=== PATIENT | female | born 1945 | race Caucasian/White ===

== ENCOUNTER 2016-06-04 19:30 | Emergency (ER) | payer MEDICARE, MEDICAID ==
[~2016-06-04 19:30] MED LIST: Ondansetron 4 MG Tab.DIS PO ONE
[2016-06-04] MEDS ORDERED: Ondansetron 4 MG/2 ML SDV ONE (19:41)
[2016-06-04] MEDS ORDERED: Sodium Chloride 0.9% 1,000 ML IV ONE (19:44)
[2016-06-04] MEDS ORDERED: Ondansetron 4 MG/2 ML SDV IVPUSH STA ×2 (19:45→20:36)
[2016-06-04 19:55] VITALS: BP 154/67
--- NOTE | 2016-06-04 20:14 | EDM.PDOC ---
ED HPI GI/ABDOMINAL - General Chief Complaint: Gastrointestinal Problem Stated Complaint: low potassium Time Seen by Provider: 06/04/16 19:58 Source of Information: Reports: Patient History Limitations: Reports: No limitations - History of Present Illness INITIAL COMMENTS - FREE TEXT/NARRATIVE: This patient is a 71 year old female from a alf with staff at bedside. The staff reports the patient since Saturday has had on and off again vomiting and decrease in appetite. She reports the patient was seen today by PCP, told she had a low potassium. She went back to alf, ate bananas and vomited. The patient presents to the ER for vomiting. The patient denies cloud, dizziness, d , f, cough, congestion, drainage, urinary changes, diarrhea, abd pain. Patient is alert. She is dry heaving when I assess the patient. Symptom Onset Date: 05/25/16 Severity: mild Associated Symptoms (-Female): Reports: loss of appetite, nausea/vomiting. Denies: chest pain, back pain, groin pain, shoulder pain, constipation, diarrhea , bloody stools, fever/chills, malaise - Related Data Allergies/ADRs: Allergies Allergy/AdvReac Type Severity Reaction Status Date / Time amoxicillin Allergy Cannot Verified 05/31/16 14:35 Remember cephalexin Allergy Cannot Verified 05/31/16 14:35 Remember codeine Allergy Cannot Verified 05/31/16 14:35 Remember Sulfa (Sulfonamide Allergy Cannot Verified 05/31/16 14:35 Antibiotics) Remember Home Meds: Home Meds Acetaminophen [Tylenol] 650 mg PO TID 05/31/16 [History] Ascorbic Acid [Vitamin C] 1,000 mg PO DAILY 05/31/16 [History] Cholecalciferol (Vitamin D3) [Vitamin D] 5,000 units PO DAILY 05/31/16 [History] Docusate Sodium [Colace] 100 mg PO BID 05/31/16 [History] Ezetimibe [Zetia] 10 mg PO DAILY 05/31/16 [History] Famotidine [Pepcid] 20 mg PO BID 05/31/16 [History] Ferrous Sulfate 325 mg PO DAILY 05/31/16 [History] Magnesium 250 mg PO DAILY 05/31/16 [History] Multivitamin [Multivitamins] 1 ea PO DAILY 05/31/16 [History] Omeprazole [Omeprazole] 20 mg PO DAILY 05/31/16 [History] Polyethylene Glycol 3350 [MiraLAX] 17 gm PO DAILY 05/31/16 [History] Solifenacin Succinate [Vesicare] 10 mg PO DAILY 05/31/16 [History] fentaNYL [Duragesic] 25 mcg TRDERM ASDIRECTED 05/31/16 [History] traMADol [Ultram] 50 mg PO Q8HR PRN 05/31/16 [History] ED ROS GENERAL - Review of Systems Review Of Systems: See Below Constitutional: Reports: decreased appetite HEENT: Reports: No symptoms Respiratory: Reports: no symptoms Cardiovascular: Reports: No symptoms Endocrine: Reports: no symptoms GI/Abdominal: Reports: Nausea, Vomiting. Denies: Abdominal pain, Diarrhea : Reports: no symptoms Musculoskeletal: Reports: no symptoms Skin: Reports: no symptoms Neurological: Reports: no symptoms Psychiatric: Reports: No symptoms Hematologic/Lymphatic: Reports: no symptoms Immunologic: Reports: no symptoms ED EXAM, GI/ABD - Physical Exam Exam: See Below Exam Limited By: No limitations General Appearance: alert, WD/WN, no apparent distress Eyes: bilateral: normal appearance Ears: normal external exam, normal canal, hearing grossly normal, normal TMs, other (right hearing aid removed for exam, replaced in ear by patient. ) Nose: normal inspection, normal mucosa, no blood Throat/Mouth: Normal inspection, Normal lips, Normal teeth, Normal gums, Normal oropharynx, Normal voice, No airway compromise Head: atraumatic, normocephalic Neck: normal inspection, supple, non-tender, full range of motion Respiratory/Chest: no respiratory distress, lungs clear, normal breath sounds, no accessory muscle use Cardiovascular: normal peripheral pulses, regular rate, rhythm, no edema, no gallop, no JVD, no murmur, no rub GI/Abdominal: normal bowel sounds, soft, non tender, no organomegaly, no distention, no abnormal bruit, no mass Back Exam: normal inspection, full range of motion. No: CVA tenderness (L), CVA tenderness (R) Extremities: normal inspection, normal range of motion, non-tender, no pedal edema, normal capillary refill Neurological: alert Psychiatric: normal affect, normal mood Skin Exam: Warm, Dry, Intact, Normal color, No rash Lymphatic: no adenopathy Course - Vital Signs Last Recorded V/S: Last Vital Signs Temp 97.9 F 06/04/16 19:47 Pulse 97 06/04/16 19:47 Resp 20 06/04/16 19:47 BP 154/67 H 06/04/16 19:47 Pulse Ox 96 06/04/16 19:47 - Orders/Labs/Meds Orders: Active Orders 24 hr Category Date Time Status Ondansetron [Take Home: Ondansetron ODT 4 MG, 2 Tab Med 06/04/16 20:36 Once Pack] 3 packet PO ONETIME ONE Ondansetron [Zofran] Med 06/04/16 20:36 Stat 4 mg IVPUSH NOW STA Sodium Chloride 0.9% [Normal Saline] 1,000 ml Med 06/04/16 19:44 Active IV .BOLUS Medication Orders Sodium Chloride (Normal Saline) 1,000 mls @ 1,000 mls/hr IV .BOLUS ONE Stop: 06/04/16 20:43 Last Admin: 06/04/16 20:02 Dose: 1,000 mls/hr Meds: Medications Generic Name Dose Route Start Last Admin Trade Name Freq PRN Reason Stop Dose Admin Sodium Chloride 1,000 mls @ 1,000 mls/hr 06/04/16 19:44 06/04/16 20:02 Normal Saline IV 06/04/16 20:43 1,000 mls/hr .BOLUS ONE Administration Discontinued Medications Generic Name Dose Route Start Last Admin Trade Name Freq PRN Reason Stop Dose Admin Ondansetron HCl 4 mg 06/04/16 19:45 06/04/16 20:00 Zofran IVPUSH 06/04/16 19:46 4 mg NOW STA Administration Ondansetron HCl Confirm 06/04/16 19:41 06/04/16 20:00 Zofran Administered 06/04/16 19:42 Not Given Dose 4 mg .ROUTE .STK-MED ONE - Re-Assessments/Exams Free Text/Narrative Re-Assessment/Exam: 06/04/16 20:31 Patient was able to hold down liquids with a PO challenge. Will discharge. Departure - Departure Time of Disposition: 20:32 Disposition: Home, Self-Care 01 Condition: good Clinical Impression: Vomiting, Hypokalemia Instructions: Nausea and Vomiting, Adult, [id number] Forms: ED Department Discharge Additional Instructions: Followup with your primary care provider Return to the ER for worsening of condition or any emergent concerns Increase fluids Zofran 4mg under the tongue every 4 hours as needed for vomiting #6 no refill - My Orders Last 24 Hours: My Active Orders 06/04/16 19:44 Sodium Chloride 0.9% [Normal Saline] 1,000 ml IV .BOLUS 06/04/16 20:36 Ondansetron [Take Home: Ondansetron ODT 4 MG, 2 Tab Pack] 3 packet PO ONETIME ONE Ondansetron [Zofran] 4 mg IVPUSH NOW STA - Assessment/Plan Last 24 Hours: My Active Orders 06/04/16 19:44 Sodium Chloride 0.9% [Normal Saline] 1,000 ml IV .BOLUS 06/04/16 20:36 Ondansetron [Take Home: Ondansetron ODT 4 MG, 2 Tab Pack] 3 packet PO ONETIME ONE Ondansetron [Zofran] 4 mg IVPUSH NOW STA Plan: PLEASE SEE RN NOTE FOR PFSH.
[2016-06-04] MEDS ORDERED: Take Home: Ondansetron 4 MG Tab.DIS, 2 Tab Pack PO ONE (20:36)
== END 2016-06-04 21:47 | disposition home or self-care (01) ==
LOC: CC.ED 19:30
DX: E87.6 Hypokalemia (principal); R11.10 Vomiting, unspecified; Z88.1 Allergy status to other antibiotic agents; Z88.5 Allergy status to narcotic agent; Z88.2 Allergy status to sulfonamides; Z79.899 Other long term (current) drug therapy; R10.9 Unspecified abdominal pain
CPT/HCPCS: 36415; 80053; 81001; 82150; 85025; 86140; 87430; 87804; 96361; 96374; 96376; 99283; A9270; J2405; J7030; 96365; 96375

== ENCOUNTER 2017-06-02 10:27 | Emergency (ER) | payer MEDICARE, MEDICAID ==
[2017-06-02 10:33] VITALS: BP 127/75
--- NOTE | 2017-06-02 10:51 | EDM.PDOC ---
ED HPI GENERAL MEDICAL PROBLEM - General Chief Complaint: ENT Problem Stated Complaint: sore throat Time Seen by Provider: 06/02/17 10:34 Source of Information: Reports: Patient, RN, Other (Garageman) - History of Present Illness INITIAL COMMENTS - FREE TEXT/NARRATIVE: This patient is a 72 patient with mental delay. Patient is a [facility] patient. Garageman reported that the patent on Saturday has had some sinus congestion, cough and drainage. They report the patient cough, congestion, drainage is improving. However, they report yesterday the patient had fever and complaining of sore throat. They report today the patient has swelling of lymphnodes of the neck. Caregiver says she has been sleeping more than usual. They and patient deny cloud, dizziness, n, v, d, neck stiffness, cp, soa, abd pain, urinary/bowel changes, rashes. Patient is conversing in full and complete sentences without difficulty. Patent airway is patent and intact. Stable. Onset Date: 05/29/17 Duration: Getting Worse Severity: Mild Improves with: Reports: None Worsens with: Reports: None Associated Symptoms: Reports: Fever/Chills. Denies: Confusion, Chest Pain, Cough, cough w sputum, Diaphoresis, Headaches, Loss of Appetite, Malaise, Nausea /Vomiting, Rash, Seizure, Shortness of Breath, Syncope, Weakness - Related Data Allergies Allergy/AdvReac Type Severity Reaction Status Date / Time amoxicillin Allergy Cannot Verified 06/02/17 10:33 Remember cephalexin Allergy Cannot Verified 06/02/17 10:33 Remember codeine Allergy Cannot Verified 06/02/17 10:33 Remember Sulfa (Sulfonamide Allergy Cannot Verified 06/02/17 10:33 Antibiotics) Remember Home Meds: Home Meds Acetaminophen [Tylenol] 650 mg PO TID 05/31/16 [History] Ascorbic Acid [Vitamin C] 1,000 mg PO DAILY 05/31/16 [History] Cholecalciferol (Vitamin D3) [Vitamin D] 5,000 units PO DAILY 05/31/16 [History] Docusate Sodium [Colace] 100 mg PO BID 05/31/16 [History] Ezetimibe [Zetia] 10 mg PO DAILY 05/31/16 [History] Famotidine [Pepcid] 20 mg PO BID 05/31/16 [History] Ferrous Sulfate 325 mg PO DAILY 05/31/16 [History] Magnesium 250 mg PO DAILY 05/31/16 [History] Multivitamin [Multivitamins] 1 ea PO DAILY 05/31/16 [History] Omeprazole [Omeprazole] 20 mg PO DAILY 05/31/16 [History] Polyethylene Glycol 3350 [MiraLAX] 17 gm PO DAILY 05/31/16 [History] Solifenacin Succinate [Vesicare] 10 mg PO DAILY 05/31/16 [History] Aspirin 325 mg PO DAILY 06/02/17 [History] Azithromycin [IJD: Azithromycin] 250 mg PO DAILY 06/02/17 [History] Dicyclomine [Bentyl] 20 mg PO QID PRN 06/02/17 [History] Nystatin [Nyamyc] 1 applic TOP BID PRN 06/02/17 [History] Past Medical History Cardiovascular History: Reports: Heart Murmur, High Cholesterol Respiratory History: Reports: Other (See Below) Other Respiratory History: EMPHYEMA Gastrointestinal History: Reports: Chronic Constipation, Gastritis Genitourinary History: Reports: Urinary Incontinence Musculoskeletal History: Reports: Osteoarthritis Psychiatric History: Reports: Anxiety, Depression, Other (See Below) Other Psychiatric History: MILD INTELLECTUAL DISABILITIES - Past Surgical History HEENT Surgical History: Reports: Naso-Sinus Surgery Musculoskeletal Surgical History: Reports: Hip Replacement Social & Family History - Family History Family Medical History: Noncontributory - Tobacco Use Smoking Status *Q: Never Smoker - Recreational Drug Use Recreational Drug Use: No ED ROS ENT - Review of Systems Review Of Systems: See Below Constitutional: Reports: Fever HEENT: Reports: Rhinitis, Sinus Problem, Throat Pain Respiratory: Reports: Cough. Denies: Shortness of Breath, Wheezing, Pleuritic Chest Pain, Sputum, Hemoptysis Cardiovascular: Reports: No Symptoms Endocrine: Reports: No Symptoms GI/Abdominal: Reports: No Symptoms : Reports: No Symptoms Musculoskeletal: Reports: No Symptoms Skin: Reports: No Symptoms Neurological: Reports: No Symptoms Psychiatric: Reports: No Symptoms Hematologic/Lymphatic: Reports: No Symptoms Immunologic: Reports: No Symptoms ED EXAM, ENT - Physical Exam Exam: See Below Exam Limited By: No Limitations General Appearance: Alert, WD/WN, No Apparent Distress Eye Exam: Bilateral Eye: Normal Inspection, PERRL Ears: Normal External Exam, Normal Canal, Hearing Grossly Normal, Normal TMs Nose: Normal Inspection, Normal Mucousa, No Blood Mouth/Throat: Normal Inspection, Normal Gums, Normal Lips, Normal Teeth, Pharyngeal Erythema. No: Bleeding, Dental Abcess, Dental Pain, Dental Tenderness, Dental Trauma, Drooling, Dry Mucous Membrane, Gum Swelling, Hoarse Voice, Lip Swelling, Lip Ulcers, Muffled Voice, Perioral Cyanosis, Peritonsillar Mass, Throat Swelling, Tongue Swelling, Tonsillar Erythema, Tonsillar Exudates, Tonsillar Swelling, Trismus, Uvular Deviation, Uvular Edema Head: Atraumatic, Normocephalic Neck: Normal Inspection, Supple, Non-Tender, Full Range of Motion Respiratory/Chest: No Respiratory Distress, Lungs Clear, Normal Breath Sounds, No Accessory Muscle Use Cardiovascular: Normal Peripheral Pulses, Regular Rate, Rhythm, No Edema, No Gallop, No JVD, No Murmur, No Rub GI/Abdominal: Soft, Non-Tender Back: Normal Inspection, Full Range of Motion Extremities: Normal Inspection, Normal Range of Motion, Non-Tender, No Pedal Edema, Normal Capillary Refill Neurological: Alert, Oriented Psychiatric: Normal Affect, Normal Mood Skin: Warm, Dry, Intact, Normal Color, No Rash Lymphatic: Adenopathy (mild cervical anterior.) Course - Vital Signs Last Recorded V/S: Last Vital Signs Temp 97.7 F 06/02/17 10:27 Pulse 83 06/02/17 10:27 Resp 18 06/02/17 10:27 BP 127/75 06/02/17 10:27 Pulse Ox 92 L 06/02/17 10:27 - Orders/Labs/Meds Orders: Active Orders 24 hr Category Date Time Status Chest 2V [CR] Stat Exams 06/02/17 10:59 Taken Labs: Laboratory Tests 06/02/17 06/02/17 06/02/17 Range/Units 11:01 11:01 12:13 WBC 7.5 (5.0-10.0) 10^3/uL RBC 3.98 L (4.00-5.50) 10^6/uL Hgb 12.5 (12.0-16.0) g/dL Hct 37.5 (37.0-47.0) % MCV 94.2 H (82.0-94.0) fL MCH 31.4 (27.0-32.0) pg MCHC 33.3 (33.0-38.0) g/dL RDW Coeff of Patricia 12.8 (11.0-15.0) % Plt Count 207 (150-400) 10^3/uL Neut % (Auto) 80.8 (35-85) % Lymph % (Auto) 8.6 L (10-55) % [place] % (Auto) 10.5 (0-16) % Eos % (Auto) 0 (0-5) % Baso % (Auto) 0.1 (0-3) % Neut # (Auto) 6.09 (1.80-7.00) 10^3/uL Lymph # (Auto) 0.65 L (1.00-4.80) 10^3/uL [place] # (Auto) 0.79 (0.00-0.80) 10^3/uL Eos # (Auto) 0.00 (0.00-0.45) 10^3/uL Baso # (Auto) 0.01 10^3/uL Sodium 132 L (136-145) mEq/L Potassium 5.0 D (3.5-5.0) mEq/L Chloride 96 L (98-106) mEq/L Carbon Dioxide 29 (21-32) mmol/L BUN 18 (7-18) mg/dL Creatinine 0.8 (0.6-1.0) mg/dL Est Cr Clr Drug Dosing 46.55 mL/min Estimated GFR (MDRD) > 60 (>=60) mL/min Glucose 127 H D (75-99) mg/dL Calcium 8.9 (8.4-10.1) mg/dL Total Bilirubin 0.4 (0.0-1.0) mg/dL AST 19 (15-37) U/L ALT 20 (12-78) U/L Alkaline Phosphatase 88 (46-116) U/L Total Protein 7.5 (6.4-8.2) g/dL Albumin 3.1 L (3.4-5.0) g/dL Urine Color Yellow (YELLOW) Urine Appearance Clear (CLEAR) Urine pH 7.0 (4.5-8.0) Ur Specific [place] 1.015 (1.003-1.020) Urine Protein Trace H (NEGATIVE) mg/dL Urine Glucose (UA) 100 H (NEGATIVE) mg/dL Urine Ketones Negative (NEGATIVE) mg/dL Urine Occult Blood Negative (NEGATIVE) Urine Nitrite Negative (NEGATIVE) Urine Bilirubin Negative (NEGATIVE) Urine Urobilinogen 0.2 (0.2-1.0) EU/dL Ur Leukocyte Esterase Negative (NEGATIVE) Urine RBC Not seen (0-5) /HPF Urine WBC Not seen (0-5) /HPF Meds: Medications Discontinued Medications Generic Name Dose Route Start Last Admin Trade Name Freq PRN Reason Stop Dose Admin Clindamycin HCl 300 mg 06/02/17 12:33 Cleocin PO 06/02/17 12:34 ONETIME ONE - Re-Assessments/Exams Free Text/Narrative Re-Assessment/Exam: 06/02/17 10:57 Patient pulse oxygen saturation is 93%. This is patient baseine per trust officer. With complaint of fever, cough, and oxygen 93%, will do CXR and labs. 06/02/17 11:46 Patient does have mildly low Chloride and Sodium. Garageman reports she has been eating and drinking without difficulty. Otherwise labs unremarkable. Departure - Departure Time of Disposition: 12:34 Disposition: Home, Self-Care 01 Condition: Good Clinical Impression: Viral pharyngitis Upper respiratory infection Qualifiers: URI type: unspecified URI Qualified Code(s): J06.9 - Acute upper respiratory infection, unspecified - Discharge Information Instructions: Pharyngitis, Upper Respiratory Infection, Adult, [id number] Forms: ED Department Discharge Additional Instructions: Followup with primary care provider this week Return to the ER for worsening of condition or any emergent concerns Stop Zithromax Increase fluids Tylenol or Motrin for fever Clindamycin 300mg 1 pill every 8 hours for 10 days #30 no refill - My Orders Last 24 Hours: My Active Orders 06/02/17 10:59 Chest 2V [CR] Stat - Assessment/Plan Last 24 Hours: My Active Orders 06/02/17 10:59 Chest 2V [CR] Stat
[2017-06-02 11:36] LABS: CHLORIDE,CL 96 mEq/L (98-106); SODIUM,NA 132 mEq/L (136-145)
[2017-06-02] MEDS ORDERED: Clindamycin HCl 150 MG Cap PO ONE (12:33)
== END 2017-06-02 15:00 | disposition home or self-care (01) ==
LOC: CC.ED 10:27
DX: J02.9 Acute pharyngitis, unspecified (principal); E78.00 Pure hypercholesterolemia, unspecified; Z88.1 Allergy status to other antibiotic agents; Z88.5 Allergy status to narcotic agent; Z88.2 Allergy status to sulfonamides; Z79.899 Other long term (current) drug therapy; Z79.82 Long term (current) use of aspirin
CPT/HCPCS: 36415; 71046; 80053; 81001; 85025; 87430; 99283; A9270-GY

== ENCOUNTER → 2018-11-14 | Day surgery (SDC) | payer MEDICARE, MEDICAID ==
[~2018-11-14] MED LIST changes: +Lactated Ringers 1,000 ML IV SCH; -Ondansetron 4 MG Tab.DIS PO ONE; +Propofol 200 MG/20 ML SDV IV ONE
[2018-11-14 09:57] VITALS: BP 118/62; PULSE 72
--- NOTE | 2018-11-14 11:12 | OR ---
DATE OF OPERATION: 11/14/2018 PREOPERATIVE DIAGNOSIS: HISTORY OF BLAIR'S ESOPHAGUS. POSTOPERATIVE DIAGNOSIS: HISTORY OF BLAIR'S ESOPHAGUS. SURGEON: Carter Tenorio MD PROCEDURE: EGD WITH BIOPSIES X3, LUCILA, POLYP REMOVAL X1. ANESTHESIA: MAC. COMPLICATIONS: None. SPECIMEN: 1. Fundal polyp. 2. Antral LUCILA. 3. Distal esophageal biopsies x3. FINDINGS: 1. Full-length EGD. 2. Fundal adenomatous polyp. 3. Hiatal hernia with gastroesophageal reflux disease. 4. Short-segment Blair's, appears unchanged and benign. RECOMMENDATIONS: Ongoing appropriate treatment with PPI. INDICATIONS: The patient has a prior EGD about 8 years ago. She had a short- segment Blair's at that time and she was sent by [facility] for surveillance. The patient is otherwise asymptomatic. DESCRIPTION OF PROCEDURE: The patient was prepped and draped, placed in the left lateral decubitus position. A lubricated Olympus gastroscope was inserted over a bit, advanced to cricopharyngeus area, and easily intubated in the esophagus. The esophageal lining was benign. Hiatal hernia is present with some spontaneous reflux. The Z-line was crisp around 35 cm. There are short- segment Blair's changes which appear unchanged from prior. This was not circumferential. I did 3 biopsies of all areas. The scope was advanced into the stomach through the pylorus into the second portion of the duodenum. This and the duodenal bulb were unremarkable. The scope was brought back into the stomach, retroflexed. The upper fundus and cardia were benign. Hernia was easily visualized from below. Upon straightening, the patient had 2 or 3 small fundal polyps in the distal fundus. We removed the larger of the 3 with forceps. CLOtest was obtained. The antrum was otherwise benign. Air was suctioned, scope removed without complication. TEE/CASSIE /[id number]
== END ==
LOC: CC.SDS 07:55
PROVIDERS: ATTEND Family Medicine
DX: K22.70 Barrett's esophagus without dysplasia (principal); K31.7 Polyp of stomach and duodenum; K21.9 Gastro-esophageal reflux disease without esophagitis; K44.9 Diaphragmatic hernia without obstruction or gangrene; E78.5 Hyperlipidemia, unspecified; E55.9 Vitamin D deficiency, unspecified; F41.9 Anxiety disorder, unspecified; F17.210 Nicotine dependence, cigarettes, uncomplicated; R62.50 Unspecified lack of expected normal physiological development in childhood; M19.90 Unspecified osteoarthritis, unspecified site; M85.80 Other specified disorders of bone density and structure, unspecified site; Z88.0 Allergy status to penicillin; Z88.5 Allergy status to narcotic agent; Z88.2 Allergy status to sulfonamides; Z88.1 Allergy status to other antibiotic agents; Z79.82 Long term (current) use of aspirin; Z79.899 Other long term (current) drug therapy
CPT/HCPCS: 00731; 43239; 81001; 87081; 88305; J2704; J7120; 87086

== ENCOUNTER 2020-02-20 21:36 | Emergency (ER) | payer MEDICARE, MEDICAID ==
[~2020-02-20 21:36] MED LIST changes: -Lactated Ringers 1,000 ML IV SCH; +Ondansetron 4 MG Tab.DIS ONE; -Propofol 200 MG/20 ML SDV IV ONE
[2020-02-20] MEDS ORDERED: Albuterol/Ipratropium 3.0-0.5 MG/3 ML Neb Soln NEB ONE (21:38)
[2020-02-20] MEDS ORDERED: Ondansetron 4 MG Tab.DIS PO ONE (21:38)
[2020-02-20] MEDS ORDERED: Acetaminophen 500 MG Tab PO ONE (22:04)
--- NOTE | 2020-02-20 22:04 | EDM.PDOC ---
ED HPI GENERAL MEDICAL PROBLEM - General Chief Complaint: General Stated Complaint: covid +, emesis Time Seen by Provider: 02/20/20 21:37 Source of Information: Reports: EMS, RN, Other ([facility] to RN. ) History Limitations: Reports: No Limitations - History of Present Illness INITIAL COMMENTS - FREE TEXT/NARRATIVE: This patient is a 74 year old female that presents via EMS from [facility]. EMS and RN have reported to me that the patient was tested for COVID on Feb 10 and tested positive. The patient since Saturday has had general weakness, shortness of breath, and cough. They report the patient was placed on 3L NC on Saturday and has been in the 90s oxygen saturation. Per RN and EMS report from [facility] staff did not seem certain of oxygen levels during the week. EMS reported patient ambulated to the stretcher without difficulty at facility. It is reported that this morning the patient was short of breath and generally weak, they "almost" called 911, but did not. It is reported that this afternoon the patient was coughing, vomited x2, coughed some more and has been coughing since. They report the patient has been in the 80s on 4L NC today. Maura espinosa arrives via EMS, on 5L NC once I enter exam room. Patient does not appear distressed. She is currently at 89%. She is conversing in full and complete sentences without any difficulty. Onset Date: 02/11/20 Severity: Moderate Improves with: Reports: None Worsens with: Reports: None Associated Symptoms: Reports: Cough, Fever/Chills, Shortness of Breath, Weakness (generally). Denies: Confusion, Chest Pain, cough w sputum, Diaphoresis, Headaches, Loss of Appetite, Malaise, Nausea/Vomiting, Rash, Seizure, Syncope Treatments ADMINISTRATIVE ASSISTANT FRONT DESK: Reports: See EMS Report, Other (see below) (oxygen) - Related Data Allergies Allergy/AdvReac Type Severity Reaction Status Date / Time amoxicillin Allergy Cannot Verified 09/24/19 10:04 Remember cephalexin Allergy Cannot Verified 09/24/19 10:04 Remember codeine Allergy Cannot Verified 09/24/19 10:04 Remember Sulfa (Sulfonamide Allergy Cannot Verified 09/24/19 10:04 Antibiotics) Remember Home Meds: Home Meds Acetaminophen [Tylenol] 500 mg PO TID 05/31/16 [History] Ascorbic Acid [Vitamin C] 1,000 mg PO DAILY 05/31/16 [History] Cholecalciferol (Vitamin D3) [Vitamin D] 2,000 units PO DAILY 05/31/16 [History] Docusate Sodium [Colace] 100 mg PO BID 05/31/16 [History] Ezetimibe [Zetia] 10 mg PO DAILY 05/31/16 [History] Famotidine [Pepcid] 20 mg PO BID 05/31/16 [History] Ferrous Sulfate 325 mg PO BID 05/31/16 [History] Magnesium 250 mg PO DAILY 05/31/16 [History] Multivitamin [Multivitamins] 1 ea PO DAILY 05/31/16 [History] Polyethylene Glycol 3350 [MiraLAX] 17 gm PO DAILY 05/31/16 [History] Solifenacin Succinate [Vesicare] 10 mg PO DAILY 05/31/16 [History] Aspirin 325 mg PO DAILY 06/02/17 [History] Dicyclomine [Bentyl] 20 mg PO QID PRN 06/02/17 [History] Nystatin [Nyamyc] 1 applic TOP BID PRN 06/02/17 [History] Carbamide Peroxide [Ear Wax Removal] 2 drop EARBOTH TU 11/13/18 [History] Clindamycin HCl 600 mg PO ASDIRECTED 11/13/18 [History] Lanolin/Min Oil/NaCl/Pet,Wh [Lubriderm Daily Moisture Lotion] 1 applic TOP BID 11/14/18 [History] Past Medical History Cardiovascular History: Reports: Heart Murmur, High Cholesterol Respiratory History: Reports: Other (See Below) Other Respiratory History: EMPHYEMA Gastrointestinal History: Reports: Chronic Constipation, Gastritis Genitourinary History: Reports: Urinary Incontinence Musculoskeletal History: Reports: Osteoarthritis Psychiatric History: Reports: Anxiety, Depression, Other (See Below) Other Psychiatric History: MILD INTELLECTUAL DISABILITIES - Past Surgical History HEENT Surgical History: Reports: Naso-Sinus Surgery Musculoskeletal Surgical History: Reports: Hip Replacement Social & Family History - Family History Family Medical History: No Pertinent Family History - Caffeine Use Caffeine Use: Reports: None ED ROS GENERAL - Review of Systems Review Of Systems: See Below Constitutional: Reports: Fever, Weakness, Fatigue HEENT: Reports: No Symptoms Respiratory: Reports: Shortness of Breath, Cough. Denies: Sputum Cardiovascular: Reports: No Symptoms Endocrine: Reports: No Symptoms GI/Abdominal: Reports: Nausea, Vomiting. Denies: Abdominal Pain, Diarrhea : Reports: No Symptoms Musculoskeletal: Reports: No Symptoms Skin: Reports: No Symptoms Neurological: Reports: No Symptoms Psychiatric: Reports: No Symptoms Hematologic/Lymphatic: Reports: No Symptoms Immunologic: Reports: No Symptoms ED EXAM, GENERAL - Physical Exam Exam: See Below Exam Limited By: No Limitations General Appearance: Alert, WD/WN, No Apparent Distress Eye Exam: Bilateral Eye: Normal Inspection, PERRL Ears: Normal External Exam, Normal Canal, Hearing Grossly Normal, Normal TMs Ear Exam: Left Ear: Auricle Normal, Canal Normal, TM normal Nose: Normal Inspection, Normal Mucosa, No Blood Throat/Mouth: Normal Inspection, Normal Lips, Normal Teeth, Normal Gums, Normal Oropharynx, Normal Voice, No Airway Compromise Head: Atraumatic, Normocephalic Neck: Normal Inspection, Supple, Non-Tender, Full Range of Motion Respiratory/Chest: No Respiratory Distress, No Accessory Muscle Use, Decreased Breath Sounds (mildly throughout), Rhonchi (mildly throughout) Cardiovascular: Normal Peripheral Pulses, Regular Rate, Rhythm, No Edema, No Gallop, No JVD, No Murmur, No Rub Peripheral Pulses: 2+: Radial (L), Radial (R), Posterior Tibial (L), Posterior Tibial (R) GI/Abdominal: Soft, Non-Tender Back Exam: Normal Inspection, Full Range of Motion Extremities: Normal Inspection, Normal Range of Motion, Non-Tender, No Pedal Edema, Normal Capillary Refill Neurological: Alert, Other (Oriented to self: Forth Piter patient. Baseline unchanged. ) Psychiatric: Normal Affect, Normal Mood Skin Exam: Warm, Dry, Intact, Normal Color, No Rash Lymphatic: No Adenopathy #1 Interpretation EKG Date: 02/21/20 Time: 23:54 Rhythm: NSR Rate (Beats/Min): 92 QRS: Normal ST-T: Normal Course - Vital Signs Last Recorded V/S: Last Vital Signs Temp 100.4 F 02/21/20 00:10 Pulse 94 02/21/20 00:10 Resp 20 02/21/20 00:10 BP 120/68 02/21/20 00:10 Pulse Ox 90 L 02/21/20 00:10 - Orders/Labs/Meds Orders: Active Orders 24 hr Category Date Time Status RT Aerosol Therapy [RC] ASDIRECTED Care 02/20/20 21:39 Active RT Incentive Spirometry [RC] ASDIRECTED Care 02/21/20 00:28 Active RT Post Treatment Assessment [RC] Click to Edit Care 02/21/20 00:29 Active RT Pre-Treatment Assessment [RC] Click to Edit Care 02/21/20 00:29 Active Ang Chest [CT] Stat Exams 02/20/20 22:53 Taken Chest 1V Frontal [CR] Stat Exams 02/20/20 21:47 Taken CULTURE BLOOD [BC] Stat Lab 02/20/20 22:52 Received CULTURE BLOOD [BC] Stat Lab 02/20/20 22:52 Received Sodium Chloride 0.9% [Normal Saline] 500 ml Med 02/20/20 23:00 Active IV .BOLUS Blood Culture x2 Reflex Set [OM.PC] Stat Oth 02/20/20 21:53 Ordered Medication Orders Sodium Chloride (Normal Saline) 500 mls @ 500 mls/hr IV .BOLUS PALLAVI Last Admin: 02/20/20 23:42 Dose: 500 mls/hr Documented by: JENIFER Labs: Laboratory Tests 02/20/20 02/20/20 02/20/20 Range/Units 21:47 21:47 21:47 WBC 7.9 (5.0-10.0) 10^3/uL RBC 3.83 L (4.00-5.50) 10^6/uL Hgb 12.1 (12.0-16.0) g/dL Hct 36.3 L (37.0-47.0) % MCV 94.8 H (82.0-94.0) fL MCH 31.6 (27.0-32.0) pg MCHC 33.3 (33.0-38.0) g/dL RDW Coeff of Patricia 13.2 (11.0-15.0) % Plt Count 168 (150-400) 10^3/uL Neut % (Auto) 93.1 H (35-85) % Lymph % (Auto) 4.2 L (10-55) % Clinch % (Auto) 2.5 (0-16) % Eos % (Auto) 0.1 (0-5) % Baso % (Auto) 0.1 (0-3) % Neut # (Auto) 7.38 H (1.80-7.00) 10^3/uL Lymph # (Auto) 0.33 L (1.00-4.80) 10^3/uL Clinch # (Auto) 0.20 (0.00-0.80) 10^3/uL Eos # (Auto) 0.01 (0.00-0.45) 10^3/uL Baso # (Auto) 0.01 10^3/uL PT 11.0 (9.7-12.3) SEC INR 1.09 (0.92-1.18) APTT 25.0 (23.2-32.3) SEC D-Dimer, Quantitative 4.18 H (0.00-0.50) Sodium 132 L (136-145) mEq/L Potassium 4.9 (3.5-5.0) mEq/L Chloride 98 (98-106) mEq/L Carbon Dioxide 26 (21-32) mmol/L BUN 35 H D (7-18) mg/dL Creatinine 1.2 H D (0.6-1.0) mg/dL Est Cr Clr Drug Dosing 34.44 mL/min Estimated GFR (MDRD) 44 L (>=60) mL/min Glucose 131 H D (75-99) mg/dL Lactic Acid (0.4-2.0) mmol/L Calcium 8.3 L (8.4-10.1) mg/dL Total Bilirubin 0.5 (0.0-1.0) mg/dL AST 34 (15-37) U/L ALT 23 (12-78) U/L Alkaline Phosphatase 54 (46-116) U/L Creatine Kinase 216 H (21-215) U/L Troponin I < 0.017 (0.00-0.06) ng/mL C-Reactive Protein 18.1 H (0.2-0.8) mg/dL NT-Pro-B Natriuret Pep 897 (0-1000) pg/mL Total Protein 8.0 (6.4-8.2) g/dL Albumin 2.9 L (3.4-5.0) g/dL 02/20/20 Range/Units 21:53 WBC (5.0-10.0) 10^3/uL RBC (4.00-5.50) 10^6/uL Hgb (12.0-16.0) g/dL Hct (37.0-47.0) % MCV (82.0-94.0) fL MCH (27.0-32.0) pg MCHC (33.0-38.0) g/dL RDW Coeff of Patricia (11.0-15.0) % Plt Count (150-400) 10^3/uL Neut % (Auto) (35-85) % Lymph % (Auto) (10-55) % Clinch % (Auto) (0-16) % Eos % (Auto) (0-5) % Baso % (Auto) (0-3) % Neut # (Auto) (1.80-7.00) 10^3/uL Lymph # (Auto) (1.00-4.80) 10^3/uL Clinch # (Auto) (0.00-0.80) 10^3/uL Eos # (Auto) (0.00-0.45) 10^3/uL Baso # (Auto) 10^3/uL PT (9.7-12.3) SEC INR (0.92-1.18) APTT (23.2-32.3) SEC D-Dimer, Quantitative (0.00-0.50) Sodium (136-145) mEq/L Potassium (3.5-5.0) mEq/L Chloride (98-106) mEq/L Carbon Dioxide (21-32) mmol/L BUN (7-18) mg/dL Creatinine (0.6-1.0) mg/dL Est Cr Clr Drug Dosing mL/min Estimated GFR (MDRD) (>=60) mL/min Glucose (75-99) mg/dL Lactic Acid 0.8 (0.4-2.0) mmol/L Calcium (8.4-10.1) mg/dL Total Bilirubin (0.0-1.0) mg/dL AST (15-37) U/L ALT (12-78) U/L Alkaline Phosphatase (46-116) U/L Creatine Kinase (21-215) U/L Troponin I (0.00-0.06) ng/mL C-Reactive Protein (0.2-0.8) mg/dL NT-Pro-B Natriuret Pep (0-1000) pg/mL Total Protein (6.4-8.2) g/dL Albumin (3.4-5.0) g/dL Meds: Medications Generic Name Dose Route Start Last Admin Trade Name Freq PRN Reason Stop Dose Admin Sodium Chloride 500 mls @ 500 mls/hr 02/20/20 23:00 02/20/20 23:42 Normal Saline IV 500 mls/hr .BOLUS PALLAVI Administration Discontinued Medications Generic Name Dose Route Start Last Admin Trade Name Freq PRN Reason Stop Dose Admin Acetaminophen 1,000 mg 02/20/20 22:04 02/20/20 22:23 Tylenol Extra Strength PO 02/20/20 22:05 1,000 mg ONETIME ONE Administration Albuterol 1 gm 02/21/20 00:28 Ventolin Hfa INH 02/21/20 00:29 NOW STA Albuterol/Ipratropium 3 ml 02/20/20 21:38 02/20/20 21:55 Duoneb 3.0-0.5 Mg/3 Ml NEB 02/20/20 21:39 3 ml ONETIME ONE Administration Ibuprofen 800 mg 02/20/20 23:42 02/20/20 23:47 Motrin PO 02/20/20 23:43 800 mg ONETIME ONE Administration Iopamidol 100 ml 02/20/20 23:00 02/20/20 23:02 Isovue-370 (76%) IVPUSH 02/20/20 23:01 100 ml ONETIME ONE Administration Ondansetron HCl 4 mg 02/20/20 21:38 02/20/20 21:55 Zofran Odt PO 02/20/20 21:39 4 mg ONETIME ONE Administration Ondansetron HCl 3 packet 02/21/20 00:27 Take Home: Ondansetron Odt 4 Mg, 2 Tab Pack PO 02/21/20 00:28 ONETIME ONE - Radiology Interpretation Free Text/Narrative:: CXR: Covid appearing lungs, no focal infiltrates. CT Ang Chest: COVID lungs. No PEs. CT Results Date: 02/21/20 CT Results Time: 00:18 - Re-Assessments/Exams Free Text/Narrative Re-Assessment/Exam: 02/20/20 22:23 After neb, patient is 91% on 4L NC now. However, patient does keep removing the NC from her nose. Will now attempt to wean Oxygen to 3L NC. 02/20/20 22:57 Patient oxygen saturation is currently 92% on 3L NC. No distress. Still conversating without difficulty. Patient labs consistent with COVID, mild renal insuff. Her D-Dimer is elevated, with hypoxia, will ango chest to r/o PE. Will also decrease oxygen to 2L NC now. 02/21/20 00:19 Patient on 2L NC, went to 89%. She was turned up to 3L NC and at 90%. She does not appear distressed. Patient also on several occasions takes her NC out of her nose and leaves it out. When she does this, she is about 87-89% on RA. Even without the oxygen she does not appear distressed. She is able to talk without difficulty. Patient has no PEs, no focal infiltrates. She is stable on NC oxygen. The facility the patient is from does have a RN for the facility. The facility has also been giving the patient oxygen and has a means to do this. Patient had positive COVID test at this time 10 days ago, does not meet criteria for COVID tx based on 10 days past COVID. The patient can be discharged back to facility and have oxygen titrated up to 6L NC to eep oxygen saturation at 90% or above. If patient oxygen maxed at 6L NC or becomes respiratory distressed, may return to the ER for evaluation and possible admit. But, at this time, the treatment for this patient can be done at the [facility]. Patient can followup with PCP this week for evaluation and oxygen saturation recheck as well. Patient is conversating and does not appear distressed. Patient has not vomited since being in the ER. She is alert. Does not appear toxic in appearance. I will discharge. Departure - Departure Time of Disposition: 00:30 Disposition: Home, Self-Care 01 Condition: Fair Clinical Impression: Renal insufficiency, COVID-19, Hypoxia - Discharge Information *PRESCRIPTION DRUG MONITORING PROGRAM REVIEWED*: Not Applicable *COPY OF PRESCRIPTION DRUG MONITORING REPORT IN PATIENT ELOY: Not Applicable Instructions: Hypoxia, COVID-19 Frequently Asked Questions, Dehydration, Adult, [id number], COVID-19: How to Protect Yourself and Others - [facility], Prevent the Spread of COVID-19 if You Are Sick - [facility] Referrals: Char Rodríguez [employer]ENDER [Primary Care Provider] - Forms: ED Department Discharge Additional Instructions: Followup with primary care provider this week for a recheck Return to the ER for worsening of condition or any emergent concerns May titrate her nasal cannula oxygen up to 6 Liters as needed to keep her Oxygen saturation between 90% - 96%. If patient is on 6L NC and is below 90% or in respiratory distress or any other concerns, may return to the ER May discuss updating code status with caretakers Zofran 4mg under the tongue every 4 hours as needed for nausea or vomiting #6 no refill ProAir inhaler 2 puffs every 4 hours as needed for shortness of breath or low oxygen saturation Incentive Spirometer may use every 2 hours while awake Tylenol and/or Motrin for fever Increase fluid intake Sepsis Event Note (ED) - Evaluation Sepsis Screening Result: Possible Sepsis Risk - Focused Exam Vital Signs: Vital Signs Temp Temp Pulse Resp BP Pulse Ox 02/21/20 00:10 100.4 F 94 20 120/68 90 L 02/20/20 23:47 101.7 F H 02/20/20 22:53 101.7 F H 02/20/20 22:24 100 F 81 24 H 93 L 02/20/20 22:23 100 F 02/20/20 21:57 92 L 02/20/20 21:37 100.8 F H 81 23 H 121/65 90 L - My Orders Last 24 Hours: My Active Orders 02/20/20 21:39 RT Aerosol Therapy [RC] ASDIRECTED 02/20/20 21:47 Chest 1V Frontal [CR] Stat 02/20/20 21:53 Blood Culture x2 Reflex Set [OM.PC] Stat 02/20/20 22:52 CULTURE BLOOD [BC] Stat CULTURE BLOOD [BC] Stat 02/20/20 22:53 Ang Chest [CT] Stat 02/20/20 23:00 Sodium Chloride 0.9% [Normal Saline] 500 ml IV .BOLUS 02/21/20 00:28 RT Incentive Spirometry [RC] ASDIRECTED 02/21/20 00:29 RT Post Treatment Assessment [RC] Click to Edit RT Pre-Treatment Assessment [RC] Click to Edit - Assessment/Plan Last 24 Hours: My Active Orders 02/20/20 21:39 RT Aerosol Therapy [RC] ASDIRECTED 02/20/20 21:47 Chest 1V Frontal [CR] Stat 02/20/20 21:53 Blood Culture x2 Reflex Set [OM.PC] Stat 02/20/20 22:52 CULTURE BLOOD [BC] Stat CULTURE BLOOD [BC] Stat 02/20/20 22:53 Ang Chest [CT] Stat 02/20/20 23:00 Sodium Chloride 0.9% [Normal Saline] 500 ml IV .BOLUS 02/21/20 00:28 RT Incentive Spirometry [RC] ASDIRECTED 02/21/20 00:29 RT Post Treatment Assessment [RC] Click to Edit RT Pre-Treatment Assessment [RC] Click to Edit Plan: PLEASE SEE RN NOTE FOR PFSH
[2020-02-20 22:50] LABS: CHLORIDE,CL 98 mEq/L (98-106); SODIUM,NA 132 mEq/L (136-145)
[2020-02-20] MEDS ORDERED: Sodium Chloride 0.9% 500 ML IV SCH (23:00)
[2020-02-20] MEDS ORDERED: Iopamidol 755 Mg/ML 100 ML Bottle IVPUSH ONE (23:00)
[2020-02-20] MEDS ORDERED: Ibuprofen 200 MG Tab PO ONE (23:42)
[2020-02-21] MEDS ORDERED: Take Home: Ondansetron 4 MG Tab.DIS, 2 Tab Pack PO ONE (00:27)
[2020-02-21] MEDS ORDERED: Albuterol 8 GM Inhaler INH STA (00:28)
[2020-02-21 02:52] VITALS: BP 97/53; PULSE 88
== END 2020-02-21 03:10 | disposition home or self-care (01) ==
LOC: CC.ED 21:36
DX: U07.1 COVID-19 (principal); R09.02 Hypoxemia; N28.9 Disorder of kidney and ureter, unspecified; J43.9 Emphysema, unspecified; M19.90 Unspecified osteoarthritis, unspecified site; Z88.1 Allergy status to other antibiotic agents; Z88.5 Allergy status to narcotic agent; Z88.2 Allergy status to sulfonamides; Z79.899 Other long term (current) drug therapy; Z79.82 Long term (current) use of aspirin; R06.02 Shortness of breath
CPT/HCPCS: 36415; 71045; 71275; 80053; 82550; 83605; 83880; 84484; 85025; 85379; 85610; 85730; 86140; 87040; 93005; 93010; 94640; 99284; 99285-25; A9270-GY; J7040; J7620-GY; Q9967

== ENCOUNTER 2020-02-23 11:21 | Inpatient (IN) | payer MEDICARE, MEDICAID ==
--- NOTE | 2020-02-23 12:04 | EDM.PDOC ---
ED HPI GENERAL MEDICAL PROBLEM - General Chief Complaint: General Stated Complaint: SOB Time Seen by Provider: 02/23/20 11:52 Source of Information: Reports: EMS, RN - Related Data Allergies Allergy/AdvReac Type Severity Reaction Status Date / Time amoxicillin Allergy Cannot Verified 02/23/20 15:07 Remember cephalexin Allergy Cannot Verified 02/23/20 15:07 Remember codeine Allergy Cannot Verified 02/23/20 15:07 Remember Sulfa (Sulfonamide Allergy Cannot Verified 02/23/20 15:07 Antibiotics) Remember Home Meds: Home Meds Acetaminophen [Tylenol] 500 mg PO TID 05/31/16 [History] Ascorbic Acid [Vitamin C] 1,000 mg PO DAILY 05/31/16 [History] Cholecalciferol (Vitamin D3) [Vitamin D] 2,000 units PO DAILY 05/31/16 [History] Docusate Sodium [Colace] 100 mg PO BID 05/31/16 [History] Ezetimibe [Zetia] 10 mg PO DAILY 05/31/16 [History] Magnesium 250 mg PO DAILY 05/31/16 [History] Multivitamin [Multivitamins] 1 ea PO DAILY 05/31/16 [History] Polyethylene Glycol 3350 [MiraLAX] 17 gm PO DAILY 05/31/16 [History] Solifenacin Succinate [Vesicare] 10 mg PO DAILY 05/31/16 [History] Dicyclomine [Bentyl] 20 mg PO QID PRN 06/02/17 [History] Nystatin [Nyamyc] 1 applic TOP BID PRN 06/02/17 [History] Carbamide Peroxide [Ear Wax Removal] 2 drop EARBOTH TU 11/13/18 [History] Clindamycin HCl 600 mg PO ASDIRECTED 11/13/18 [History] Lanolin/Min Oil/NaCl/Pet,Wh [Lubriderm Daily Moisture Lotion] 1 applic TOP BID 11/14/18 [History] Magnesium Citrate [Citrate of Magnesia] 300 ml PO ASDIRECTED PRN 02/23/20 [History] Omeprazole 20 mg PO DAILY 02/23/20 [History] nitrofurantoin macrocrystaL [Macrodantin] 50 mg PO DAILY 02/23/20 [History] Past Medical History Cardiovascular History: Reports: Heart Murmur, High Cholesterol Respiratory History: Reports: Other (See Below) Other Respiratory History: EMPHYEMA Gastrointestinal History: Reports: Chronic Constipation, Gastritis Genitourinary History: Reports: Urinary Incontinence Musculoskeletal History: Reports: Osteoarthritis Psychiatric History: Reports: Anxiety, Depression, Other (See Below) Other Psychiatric History: MILD INTELLECTUAL DISABILITIES - Past Surgical History HEENT Surgical History: Reports: Naso-Sinus Surgery Musculoskeletal Surgical History: Reports: Hip Replacement Social & Family History - Family History Family Medical History: No Pertinent Family History - Caffeine Use Caffeine Use: Reports: None Course - Vital Signs Last Recorded V/S: Last Vital Signs Temp 99.6 F 02/25/20 10:33 Pulse 121 H 02/25/20 10:33 Resp 40 H 02/25/20 10:33 BP 164/87 H 02/25/20 10:33 Pulse Ox 81 L 02/25/20 10:33 - Orders/Labs/Meds Orders: Medication Orders Acetaminophen (Tylenol) 650 mg PO Q4H PRN PRN Reason: Pain (Mild 1-3)/fever Acetaminophen (Tylenol Extra Strength) 500 mg PO TID PALLAVI Last Admin: 02/25/20 13:01 Dose: 500 mg Documented by: Admin: 02/25/20 09:59 Dose: Not Given Documented by: Admin: 02/24/20 20:02 Dose: 500 mg Documented by: Admin: 02/24/20 13:26 Dose: 500 mg Documented by: Admin: 02/24/20 07:50 Dose: 500 mg Documented by: Admin: 02/23/20 20:26 Dose: 500 mg Documented by: BREEZY Ibuprofen (Motrin) 400 mg PO Q6H PRN PRN Reason: Pain (mild 1-3) Lorazepam (Ativan) 0.5 - 1 mg IVPUSH Q1H PRN PRN Reason: Anxiety Morphine Sulfate (Morphine) 1 - 2 mg IVPUSH Q2H PRN PRN Reason: Pain Last Admin: 02/25/20 13:01 Dose: 2 mg Documented by: Admin: 02/25/20 09:45 Dose: 2 mg Documented by: BRANDY Ondansetron HCl (Zofran) 4 mg IV Q6H PRN PRN Reason: Nausea/Vomiting Labs: Laboratory Tests 11/17/20 11/17/20 11/17/20 Range/Units 11:45 11:45 11:45 WBC 11.3 H (5.0-10.0) 10^3/uL RBC 4.22 (4.00-5.50) 10^6/uL Hgb 13.2 (12.0-16.0) g/dL Hct 39.9 (37.0-47.0) % MCV 94.5 H (82.0-94.0) fL MCH 31.3 (27.0-32.0) pg MCHC 33.1 (33.0-38.0) g/dL RDW Coeff of Patricia 14.1 (11.0-15.0) % Plt Count 270 (150-400) 10^3/uL Add Manual Diff Yes Neutrophils % (Manual) 74 (35-85) % Band Neutrophils % 18 H (0-5) % Lymphocytes % (Manual) 5 L (21-55) % Monocytes % (Manual) 3 (2-12) % PT 10.2 (9.7-12.3) SEC INR 1.01 (0.92-1.18) D-Dimer, Quantitative (0.00-0.50) ABG pH (7.35-7.45) ABG pCO2 (35-45) mm/Hg0 ABG pO2 (80-100) mm/Hg ABG HCO3 (22.0-26.0) mm/L ABG O2 Saturation (95-98) % ABG Base Excess (-2.0-3.0) O2 Delivery Device Sodium 135 L (136-145) mEq/L Potassium 5.0 (3.5-5.0) mEq/L Chloride 100 (98-106) mEq/L Carbon Dioxide 26 (21-32) mmol/L BUN 51 H (7-18) mg/dL Creatinine 1.3 H (0.6-1.0) mg/dL Est Cr Clr Drug Dosing TNP Estimated GFR (MDRD) 40 L (>=60) mL/min Glucose 111 H (75-99) mg/dL Lactic Acid (0.4-2.0) mmol/L Calcium 8.9 (8.4-10.1) mg/dL Total Bilirubin 0.5 (0.0-1.0) mg/dL AST 37 (15-37) U/L ALT 23 (12-78) U/L Alkaline Phosphatase 65 (46-116) U/L Creatine Kinase 43 (21-215) U/L Troponin I < 0.017 (0.00-0.06) ng/mL NT-Pro-B Natriuret Pep 1184 H (0-1000) pg/mL Total Protein 8.3 H (6.4-8.2) g/dL Albumin 2.6 L (3.4-5.0) g/dL 02/23/20 02/23/20 02/23/20 Range/Units 11:45 11:45 12:45 WBC (5.0-10.0) 10^3/uL RBC (4.00-5.50) 10^6/uL Hgb (12.0-16.0) g/dL Hct (37.0-47.0) % MCV (82.0-94.0) fL MCH (27.0-32.0) pg MCHC (33.0-38.0) g/dL RDW Coeff of Patricia (11.0-15.0) % Plt Count (150-400) 10^3/uL Add Manual Diff Neutrophils % (Manual) (35-85) % Band Neutrophils % (0-5) % Lymphocytes % (Manual) (21-55) % Monocytes % (Manual) (2-12) % PT (9.7-12.3) SEC INR (0.92-1.18) D-Dimer, Quantitative 3.67 H (0.00-0.50) ABG pH 7.36 (7.35-7.45) ABG pCO2 34 L (35-45) mm/Hg0 ABG pO2 52 L (80-100) mm/Hg ABG HCO3 19.2 L (22.0-26.0) mm/L ABG O2 Saturation 86 L (95-98) % ABG Base Excess -6.0 L (-2.0-3.0) O2 Delivery Device Non rebr mask Sodium (136-145) mEq/L Potassium (3.5-5.0) mEq/L Chloride (98-106) mEq/L Carbon Dioxide (21-32) mmol/L BUN (7-18) mg/dL Creatinine (0.6-1.0) mg/dL Est Cr Clr Drug Dosing Estimated GFR (MDRD) (>=60) mL/min Glucose (75-99) mg/dL Lactic Acid 1.5 (0.4-2.0) mmol/L Calcium (8.4-10.1) mg/dL Total Bilirubin (0.0-1.0) mg/dL AST (15-37) U/L ALT (12-78) U/L Alkaline Phosphatase (46-116) U/L Creatine Kinase (21-215) U/L Troponin I (0.00-0.06) ng/mL NT-Pro-B Natriuret Pep (0-1000) pg/mL Total Protein (6.4-8.2) g/dL Albumin (3.4-5.0) g/dL Meds: Medications Generic Name Dose Route Start Last Admin Trade Name Patric PRN Reason Stop Dose Admin Acetaminophen 650 mg 02/23/20 14:01 Tylenol PO Q4H PRN Pain (Mild 1-3)/fever Acetaminophen 500 mg 02/23/20 20:00 02/25/20 13:01 Tylenol Extra Strength PO 500 mg TID PALLAVI Administration Ibuprofen 400 mg 02/23/20 14:01 Motrin PO Q6H PRN Pain (mild 1-3) Lorazepam 0.5 - 1 mg 02/25/20 10:13 Ativan IVPUSH Q1H PRN Anxiety Morphine Sulfate 1 - 2 mg 02/25/20 06:48 02/25/20 13:01 Morphine IVPUSH 2 mg Q2H PRN Administration Pain Ondansetron HCl 4 mg 02/23/20 14:01 Zofran IV Q6H PRN Nausea/Vomiting Discontinued Medications Generic Name Dose Route Start Last Admin Trade Name Freq PRN Reason Stop Dose Admin Acetaminophen 500 mg 02/23/20 20:00 02/23/20 20:28 Tylenol PO Not Given TID [facility] Acetaminophen Confirm 02/23/20 20:16 02/23/20 20:27 Tylenol Extra Strength Administered 02/23/20 20:17 Not Given Dose 500 mg .ROUTE .STK-MED ONE Ascorbic Acid 1,000 mg 02/24/20 08:00 02/25/20 09:59 Vitamin C PO Not Given DAILY [facility] Aspirin 325 mg 02/24/20 08:00 Aspirin PO DAILY [facility] Atorvastatin Calcium 40 mg 02/23/20 20:00 02/24/20 20:02 Lipitor PO 40 mg BEDTIME [facility] Administration Cholecalciferol 50 mcg 02/24/20 08:00 02/25/20 09:59 Vitamin D3 PO Not Given DAILY [facility] Dexamethasone 6 mg 02/23/20 16:00 02/24/20 15:28 Decadron IVPUSH 03/03/20 16:01 6 mg DAILY@1600 [facility] Administration Docusate Sodium 100 mg 02/23/20 14:01 Colace PO BID PRN Constipation Docusate Sodium 100 mg 02/23/20 20:00 02/25/20 09:58 Colace PO Not Given BID [facility] Enoxaparin Sodium 40 mg 02/23/20 20:00 02/24/20 07:51 Lovenox SUBCUT 40 mg BID [facility] Administration Enoxaparin Sodium 40 mg 02/24/20 08:45 Lovenox SUBCUT Q12H [facility] Enoxaparin Sodium 40 mg 02/24/20 20:00 02/25/20 09:58 Lovenox SUBCUT Not Given DAILY@0800,2000 [facility] Sodium Chloride 1,000 mls @ 75 mls/hr 02/23/20 16:00 02/23/20 15:58 Normal Saline IV 02/24/20 05:19 75 mls/hr ASDIRECTED PALLAVI Administration Remdesivir 200 mg/ Sodium 250 mls @ 250 mls/hr 02/23/20 16:00 02/23/20 15:58 Chloride IV 02/23/20 16:59 250 mls/hr ONETIME ONE Administration Remdesivir 100 mg/ Sodium 100 mls @ 100 mls/hr 02/24/20 16:00 02/24/20 15:28 Chloride IV 02/27/20 16:59 100 mls/hr DAILY@1600 [facility] Administration Lorazepam 0.5 - 1 mg 02/25/20 06:42 Ativan IVPUSH Q6H PRN Anxiety Magnesium Oxide 250 mg 02/24/20 08:00 02/25/20 09:58 Magnesium Oxide PO Not Given DAILY [facility] Morphine Sulfate 1 - 2 mg 02/25/20 06:45 Morphine IVPUSH Q2H [facility] Multivitamins/Minerals/Vitamin C 1 tab 02/24/20 08:00 02/25/20 09:59 Tab-A-Jonatan PO Not Given DAILY [facility] Non-Formulary Medication 10 mg 02/24/20 08:00 Ezetimibe [Zetia] PO DAILY [facility] Non-Formulary Medication 325 mg 02/23/20 20:00 Ferrous Sulfate [Ferrous Sulfate] PO BID [facility] Nystatin 0 gm 02/23/20 14:05 Nystop TOP BID PRN Rash Pantoprazole Sodium 40 mg 02/23/20 20:00 02/24/20 20:02 Protonix Iv IVPUSH 40 mg DAILY@1999 [facility] Administration Polyethylene Glycol 17 gm 02/24/20 08:00 02/25/20 09:58 Miralax PO Not Given DAILY [facility] Trospium 20 mg 02/23/20 20:00 02/25/20 09:59 Sanctura PO Not Given BID [facility] Zinc Sulfate 220 mg 02/23/20 16:00 02/25/20 10:00 Zincate PO Not Given DAILY [facility] Departure - Departure Disposition: Admitted As Inpatient 64 Clinical Impression: COVID-19, Hypoxia, Renal insufficiency - Discharge Information
[2020-02-23 12:38] LABS: CHLORIDE,CL 100 mEq/L (98-106); SODIUM,NA 135 mEq/L (136-145)
[2020-02-23 13:26] LABS: O2 DELIVERY DEVICE NON REBR MASK; O2 SATURATION ARTERIAL 86 % (95-98); PCO2 ARTERIAL 34 mm/Hg0 (35-45); PO2 ARTERIAL 52 mm/Hg (80-100)
[2020-02-23 13:27] LABS: BICARBONATE,ARTERIAL 19.2 mm/L (22.0-26.0)
[2020-02-23] MEDS ORDERED: Docusate Sodium 100 MG Cap PO PRN (14:01)
[2020-02-23] MEDS ORDERED: Acetaminophen 325 MG Tab PO PRN (14:01)
[2020-02-23] MEDS ORDERED: Ibuprofen 200 MG Tab PO PRN (14:01)
[2020-02-23] MEDS ORDERED: Ondansetron 4 MG/2 ML SDV IV PRN (14:01)
[2020-02-23] MEDS ORDERED: Nystatin Topical Powder 15 GM Bottle TOP PRN (14:05)
--- NOTE | 2020-02-23 14:33 | EDM.PDOC ---
ED HPI GENERAL MEDICAL PROBLEM - General Chief Complaint: General Stated Complaint: SOB Time Seen by Provider: 02/23/20 12:15 Source of Information: Reports: EMS, RN History Limitations: Reports: No Limitations - History of Present Illness INITIAL COMMENTS - FREE TEXT/NARRATIVE: Joselin is a 74 yo female who presents to the ED via EMS. SHe currently resides in a longterm. Was diagnosed with Covid-19 on 02/11/2020. Has steadily declined since that time. Was initially on home O2. Was switched from nasal cannula to a simple mask at 5 L O2 yesterday. [facility] staff report throughout the night they were only able to get her O2 sats to mid 70s. She reports she has a cough. Denies any headache, chest pain, N/D/V, urinary symptoms, loss of taste/smell. Onset Date: 02/11/20 Duration: Getting Worse Associated Symptoms: Reports: Cough, Loss of Appetite, Weakness Treatments PRODUCT SUPPORT REP: Reports: Oxygen - Related Data Allergies Allergy/AdvReac Type Severity Reaction Status Date / Time amoxicillin Allergy Cannot Verified 02/23/20 15:07 Remember cephalexin Allergy Cannot Verified 02/23/20 15:07 Remember codeine Allergy Cannot Verified 02/23/20 15:07 Remember Sulfa (Sulfonamide Allergy Cannot Verified 02/23/20 15:07 Antibiotics) Remember Home Meds: Home Meds Acetaminophen [Tylenol] 500 mg PO TID 05/31/16 [History] Ascorbic Acid [Vitamin C] 1,000 mg PO DAILY 05/31/16 [History] Cholecalciferol (Vitamin D3) [Vitamin D] 2,000 units PO DAILY 05/31/16 [History] Docusate Sodium [Colace] 100 mg PO BID 05/31/16 [History] Ezetimibe [Zetia] 10 mg PO DAILY 05/31/16 [History] Magnesium 250 mg PO DAILY 05/31/16 [History] Multivitamin [Multivitamins] 1 ea PO DAILY 05/31/16 [History] Polyethylene Glycol 3350 [MiraLAX] 17 gm PO DAILY 05/31/16 [History] Solifenacin Succinate [Vesicare] 10 mg PO DAILY 05/31/16 [History] Dicyclomine [Bentyl] 20 mg PO QID PRN 06/02/17 [History] Nystatin [Nyamyc] 1 applic TOP BID PRN 06/02/17 [History] Carbamide Peroxide [Ear Wax Removal] 2 drop EARBOTH TU 11/13/18 [History] Clindamycin HCl 600 mg PO ASDIRECTED 11/13/18 [History] Lanolin/Min Oil/NaCl/Pet,Wh [Lubriderm Daily Moisture Lotion] 1 applic TOP BID 11/14/18 [History] Magnesium Citrate [Citrate of Magnesia] 300 ml PO ASDIRECTED PRN 02/23/20 [History] Omeprazole 20 mg PO DAILY 02/23/20 [History] nitrofurantoin macrocrystaL [Macrodantin] 50 mg PO DAILY 02/23/20 [History] Past Medical History Cardiovascular History: Reports: Heart Murmur, High Cholesterol Respiratory History: Reports: Other (See Below) Other Respiratory History: EMPHYEMA Gastrointestinal History: Reports: Chronic Constipation, Gastritis Genitourinary History: Reports: Urinary Incontinence Musculoskeletal History: Reports: Osteoarthritis Psychiatric History: Reports: Anxiety, Depression, Other (See Below) Other Psychiatric History: MILD INTELLECTUAL DISABILITIES - Past Surgical History HEENT Surgical History: Reports: Naso-Sinus Surgery Respiratory Surgical History: Reports: Thoracotomy GI Surgical History: Reports: Cholecystectomy, EGD Musculoskeletal Surgical History: Reports: Hip Replacement Social & Family History - Family History Family Medical History: No Pertinent Family History - Tobacco Use Tobacco Use Status *Q: Never Tobacco User Second Hand Smoke Exposure: No - Caffeine Use Caffeine Use: Reports: Soda - Recreational Drug Use Recreational Drug Use: No ED ROS GENERAL - Review of Systems Review Of Systems: Comprehensive ROS is negative, except as noted in HPI. ED EXAM, GENERAL - Physical Exam Exam: See Below Exam Limited By: Altered Mental Status General Appearance: Alert, WD/WN, Moderate Distress Eye Exam: Bilateral Eye: EOMI, PERRL Ears: Normal External Exam, Normal Canal, Hearing Grossly Normal, Normal TMs Nose: Nasal Drainage Throat/Mouth: Normal Inspection, Normal Lips, Normal Teeth, Normal Gums, Normal Oropharynx, Normal Voice, No Airway Compromise Head: Atraumatic, Normocephalic Neck: Normal Inspection, Supple, Non-Tender, Full Range of Motion Respiratory/Chest: Respiratory Distress, Decreased Breath Sounds, Rhonchi, Wheezing Cardiovascular: Normal Peripheral Pulses, Regular Rate, Rhythm GI/Abdominal: Normal Bowel Sounds, Soft, Non-Tender, No Organomegaly, No Distention, No Abnormal Bruit, No Mass Extremities: Normal Inspection, Normal Range of Motion, Non-Tender, Normal Capillary Refill, No Pedal Edema Neurological: Alert, Oriented, CN II-XII Intact, No Motor/Sensory Deficits Psychiatric: Normal Affect, Normal Mood Skin Exam: Warm, Dry, Intact, No Rash, Pallor Lymphatic: No Adenopathy Course - Vital Signs Last Recorded V/S: Last Vital Signs Temp 96.1 F L 02/23/20 12:25 Pulse 78 02/23/20 12:25 Resp 28 H 02/23/20 12:25 BP 128/73 02/23/20 12:25 Pulse Ox 86 L 02/23/20 12:25 - Orders/Labs/Meds Orders: Active Orders 24 hr Category Date Time Status Chest 1V Frontal [CR] Stat Exams 02/23/20 11:38 Taken Medication Orders Acetaminophen (Tylenol) 650 mg PO Q4H PRN PRN Reason: Pain (Mild 1-3)/fever Acetaminophen (Tylenol) 500 mg PO TID [facility] Ascorbic Acid (Vitamin C) 1,000 mg PO DAILY [facility] Atorvastatin Calcium (Lipitor) 40 mg PO BEDTIME [facility] Cholecalciferol (Vitamin D3) 50 mcg PO DAILY [facility] Dexamethasone (Decadron) 6 mg IVPUSH DAILY@1600 [facility] Stop: 03/03/20 16:01 Last Admin: 02/23/20 15:59 Dose: 6 mg Documented by: BRANDY Docusate Sodium (Colace) 100 mg PO BID [facility] Enoxaparin Sodium (Lovenox) 40 mg SUBCUT BID [facility] Sodium Chloride (Normal Saline) 1,000 mls @ 75 mls/hr IV ASDIRECTED [facility] Stop: 02/24/20 05:19 Last Admin: 02/23/20 15:58 Dose: 75 mls/hr Documented by: BRANDY Remdesivir 100 mg/ Sodium (Chloride) 100 mls @ 100 mls/hr IV DAILY@1600 [facility] Stop: 02/27/20 16:59 Ibuprofen (Motrin) 400 mg PO Q6H PRN PRN Reason: Pain (mild 1-3) Magnesium Oxide (Magnesium Oxide) 250 mg PO DAILY [facility] Multivitamins/Minerals/Vitamin C (Tab-A-Jonatan) 1 tab PO DAILY [facility] Nystatin (Nystop) 0 gm TOP BID PRN PRN Reason: Rash Ondansetron HCl (Zofran) 4 mg IV Q6H PRN PRN Reason: Nausea/Vomiting Pantoprazole Sodium (Protonix Iv) 40 mg IVPUSH DAILY@2000 [facility] Polyethylene Glycol (Miralax) 17 gm PO DAILY [facility] Trospium (Sanctura) 20 mg PO BID [facility] Zinc Sulfate (Zincate) 220 mg PO DAILY [facility] Last Admin: 02/23/20 15:59 Dose: 220 mg Documented by: BRANDY Labs: Laboratory Tests 02/23/20 02/23/20 02/23/20 Range/Units 11:45 11:45 11:45 WBC 11.3 H (5.0-10.0) 10^3/uL RBC 4.22 (4.00-5.50) 10^6/uL Hgb 13.2 (12.0-16.0) g/dL Hct 39.9 (37.0-47.0) % MCV 94.5 H (82.0-94.0) fL MCH 31.3 (27.0-32.0) pg MCHC 33.1 (33.0-38.0) g/dL RDW Coeff of Patricia 14.1 (11.0-15.0) % Plt Count 270 (150-400) 10^3/uL Add Manual Diff Yes Neutrophils % (Manual) 74 (35-85) % Band Neutrophils % 18 H (0-5) % Lymphocytes % (Manual) 5 L (21-55) % Monocytes % (Manual) 3 (2-12) % PT 10.2 (9.7-12.3) SEC INR 1.01 (0.92-1.18) D-Dimer, Quantitative (0.00-0.50) ABG pH (7.35-7.45) ABG pCO2 (35-45) mm/Hg0 ABG pO2 (80-100) mm/Hg ABG HCO3 (22.0-26.0) mm/L ABG O2 Saturation (95-98) % ABG Base Excess (-2.0-3.0) O2 Delivery Device Sodium 135 L (136-145) mEq/L Potassium 5.0 (3.5-5.0) mEq/L Chloride 100 (98-106) mEq/L Carbon Dioxide 26 (21-32) mmol/L BUN 51 H (7-18) mg/dL Creatinine 1.3 H (0.6-1.0) mg/dL Est Cr Clr Drug Dosing TNP Estimated GFR (MDRD) 40 L (>=60) mL/min Glucose 111 H (75-99) mg/dL Lactic Acid (0.4-2.0) mmol/L Calcium 8.9 (8.4-10.1) mg/dL Total Bilirubin 0.5 (0.0-1.0) mg/dL AST 37 (15-37) U/L ALT 23 (12-78) U/L Alkaline Phosphatase 65 (46-116) U/L Creatine Kinase 43 (21-215) U/L Troponin I < 0.017 (0.00-0.06) ng/mL NT-Pro-B Natriuret Pep 1184 H (0-1000) pg/mL Total Protein 8.3 H (6.4-8.2) g/dL Albumin 2.6 L (3.4-5.0) g/dL 02/23/20 02/23/20 02/23/20 Range/Units 11:45 11:45 12:45 WBC (5.0-10.0) 10^3/uL RBC (4.00-5.50) 10^6/uL Hgb (12.0-16.0) g/dL Hct (37.0-47.0) % MCV (82.0-94.0) fL MCH (27.0-32.0) pg MCHC (33.0-38.0) g/dL RDW Coeff of Patricia (11.0-15.0) % Plt Count (150-400) 10^3/uL Add Manual Diff Neutrophils % (Manual) (35-85) % Band Neutrophils % (0-5) % Lymphocytes % (Manual) (21-55) % Monocytes % (Manual) (2-12) % PT (9.7-12.3) SEC INR (0.92-1.18) D-Dimer, Quantitative 3.67 H (0.00-0.50) ABG pH 7.36 (7.35-7.45) ABG pCO2 34 L (35-45) mm/Hg0 ABG pO2 52 L (80-100) mm/Hg ABG HCO3 19.2 L (22.0-26.0) mm/L ABG O2 Saturation 86 L (95-98) % ABG Base Excess -6.0 L (-2.0-3.0) O2 Delivery Device Non rebr mask Sodium (136-145) mEq/L Potassium (3.5-5.0) mEq/L Chloride (98-106) mEq/L Carbon Dioxide (21-32) mmol/L BUN (7-18) mg/dL Creatinine (0.6-1.0) mg/dL Est Cr Clr Drug Dosing Estimated GFR (MDRD) (>=60) mL/min Glucose (75-99) mg/dL Lactic Acid 1.5 (0.4-2.0) mmol/L Calcium (8.4-10.1) mg/dL Total Bilirubin (0.0-1.0) mg/dL AST (15-37) U/L ALT (12-78) U/L Alkaline Phosphatase (46-116) U/L Creatine Kinase (21-215) U/L Troponin I (0.00-0.06) ng/mL NT-Pro-B Natriuret Pep (0-1000) pg/mL Total Protein (6.4-8.2) g/dL Albumin (3.4-5.0) g/dL Meds: Medications Generic Name Dose Route Start Last Admin Trade Name Freq PRN Reason Stop Dose Admin Acetaminophen 650 mg 02/23/20 14:01 Tylenol PO Q4H PRN Pain (Mild 1-3)/fever Acetaminophen 500 mg 02/23/20 20:00 Tylenol PO TID [facility] Ascorbic Acid 1,000 mg 02/24/20 08:00 Vitamin C PO DAILY [facility] Atorvastatin Calcium 40 mg 02/23/20 20:00 Lipitor PO BEDTIME [facility] Cholecalciferol 50 mcg 02/24/20 08:00 Vitamin D3 PO DAILY [facility] Dexamethasone 6 mg 02/23/20 16:00 02/23/20 15:59 Decadron IVPUSH 03/03/20 16:01 6 mg DAILY@1600 [facility] Administration Docusate Sodium 100 mg 02/23/20 20:00 Colace PO BID [facility] Enoxaparin Sodium 40 mg 02/23/20 20:00 Lovenox SUBCUT BID [facility] Sodium Chloride 1,000 mls @ 75 mls/hr 02/23/20 16:00 02/23/20 15:58 Normal Saline IV 02/24/20 05:19 75 mls/hr ASDIRECTED [facility] Administration Remdesivir 100 mg/ Sodium 100 mls @ 100 mls/hr 02/24/20 16:00 Chloride IV 02/27/20 16:59 DAILY@1600 [facility] Ibuprofen 400 mg 02/23/20 14:01 Motrin PO Q6H PRN Pain (mild 1-3) Magnesium Oxide 250 mg 02/24/20 08:00 Magnesium Oxide PO DAILY [facility] Multivitamins/Minerals/Vitamin C 1 tab 02/24/20 08:00 Tab-A-Jonatan PO DAILY [facility] Nystatin 0 gm 02/23/20 14:05 Nystop TOP BID PRN Rash Ondansetron HCl 4 mg 02/23/20 14:01 Zofran IV Q6H PRN Nausea/Vomiting Pantoprazole Sodium 40 mg 02/23/20 20:00 Protonix Iv IVPUSH DAILY@2000 [facility] Polyethylene Glycol 17 gm 02/24/20 08:00 Miralax PO DAILY [facility] Trospium 20 mg 02/23/20 20:00 Sanctura PO BID [facility] Zinc Sulfate 220 mg 02/23/20 16:00 02/23/20 15:59 Zincate PO 220 mg DAILY [facility] Administration Discontinued Medications Generic Name Dose Route Start Last Admin Trade Name Freq PRN Reason Stop Dose Admin Aspirin 325 mg 02/24/20 08:00 Aspirin PO DAILY [facility] Docusate Sodium 100 mg 02/23/20 14:01 Colace PO BID PRN Constipation Remdesivir 200 mg/ Sodium 250 mls @ 250 mls/hr 02/23/20 16:00 02/23/20 15:58 Chloride IV 02/23/20 16:59 250 mls/hr ONETIME ONE Administration Non-Formulary Medication 10 mg 02/24/20 08:00 Ezetimibe [Zetia] PO DAILY [facility] Non-Formulary Medication 325 mg 02/23/20 20:00 Ferrous Sulfate [Ferrous Sulfate] PO BID [facility] - Re-Assessments/Exams Free Text/Narrative Re-Assessment/Exam: 02/23/20 7584 Consulted with [facility] Hospitalist Dr. Riddle to discuss his recommendations regarding treatment. He advises that he would still do Remdesevir and dexamethasone. Discussed labs including BUN/creatinine and NA. He feels it would be good to do a few liters of NS over the next day. Does r ecommend try prone positioning if the patient tolerates. Departure - Departure Time of Disposition: 12:45 Disposition: Admitted As Inpatient 64 Condition: Critical Clinical Impression: COVID-19, Hypoxia, Renal insufficiency - Discharge Information *PRESCRIPTION DRUG MONITORING PROGRAM REVIEWED*: Not Applicable *COPY OF PRESCRIPTION DRUG MONITORING REPORT IN PATIENT ELOY: Not Applicable Sepsis Event Note (ED) - Evaluation Sepsis Screening Result: Possible Sepsis Risk - Focused Exam Vital Signs: Vital Signs Temp Pulse Resp BP Pulse Ox 02/23/20 12:25 96.1 F L 78 28 H 128/73 86 L - Problem List & Annotations (1) Pneumonia due to severe acute respiratory syndrome coronavirus 2 (SARS-CoV-2) SNOMED Code(s): 775611841236497083 Code(s): U07.1 - COVID-19; J12.89 - OTHER VIRAL PNEUMONIA Status: Acute Current Visit: Yes (2) COVID-19 SNOMED Code(s): 963166761 Code(s): U07.1 - COVID-19 Status: Acute Current Visit: Yes (3) Renal insufficiency SNOMED Code(s): 708554993, 341714545 Code(s): N28.9 - DISORDER OF KIDNEY AND URETER, UNSPECIFIED Status: Acute Current Visit: Yes (4) Hypoxia SNOMED Code(s): 050950141 Code(s): R09.02 - HYPOXEMIA Status: Acute Current Visit: Yes - Assessment/Plan Assessment:: Pneumonia due to Covid-19 virus Hypoxia Renal Insufficiency Plan: 74 yo male presents to ED via EMS with c/o respiratory distress and hypoxia. Has been on home O2 the past few days at 5 L via [place]. Was then switched to simple mask. O2 sats throughout the night were apparently in the 70s. Was low 80s on 5 L. Patient was placed on 15 L NRB and was able to get O2 sats to low 90s. Chest xray does show worsening opacity in left lung, but some improvement in right lung. Admit to acute. Will start remdesevir, dexamethasone, zinc, vitamin C, vitamin D, and lipitor. Given increase in WBC with band neutrophils, will also start azithromycin. Will also cautiously give patient 2 L NS for ANIA. Did discuss code status with patient. She does have underlying mental retardation, but does serve as her own guardian. She wishes to not be intubated, although I am not sure she fully understands what this means. I did discuss with Loan Negrete, her next of kin. She would like her to be full code status, which she was prior to this. We will readdress if needed. I am hopeful she will continue to maintain O2 sats here locally on 15 L NRB. Should she require more oxygen than this, she would need to be transferred to higher level of care. Again, I did discuss case with Dr. Riddle, [facility] hospitalist at [facility] and he advised on recommended treatment.
[2020-02-23] MEDS: Zinc Sulfate 220 MG Cap PO SCH (15:59)
[2020-02-23] MEDS: Dexamethasone 4 MG/ML SDV IVPUSH SCH (15:59)
[2020-02-23] MEDS ORDERED: Sodium Chloride 0.9% 1,000 ML IV SCH (16:00)
[2020-02-23] MEDS ORDERED: REMDESIVIR 200 MG in Sodium Chloride 0.9% 250 ML IV ONE (16:00)
[2020-02-23] MEDS ORDERED: Acetaminophen 325 MG Tab PO SCH (20:00)
[2020-02-23] MEDS ORDERED: Non-Formulary Medication 1 Each (Ferrous Sulfate [Ferrous Sulfate] 325 MG) PO SCH (20:00)
[2020-02-23] MEDS: atorvaSTATin 20 MG Tab PO SCH (20:04)
[2020-02-23] MEDS: Enoxaparin 40 MG/0.4 ML Syringe SUBCUT SCH (20:04)
[2020-02-23] MEDS: Docusate Sodium 100 MG Cap PO SCH (20:04)
[2020-02-23] MEDS: Trospium 20 MG Tab PO SCH (20:04)
[2020-02-23] MEDS: Pantoprazole 40 MG Vial IVPUSH SCH (20:05)
[2020-02-23] MEDS ORDERED: Acetaminophen 500 MG Tab ONE (20:16)
[2020-02-23] MEDS: Acetaminophen 500 MG Tab PO SCH (20:26)
[2020-02-24] MEDS: Docusate Sodium 100 MG Cap PO SCH ×2 (07:49→20:02)
[2020-02-24] MEDS: Trospium 20 MG Tab PO SCH ×2 (07:50→20:02)
[2020-02-24] MEDS: Ascorbic Acid 500 MG Tab PO SCH (07:50)
[2020-02-24] MEDS: Cholecalciferol (Vitamin D3) 25 MCG Tab PO SCH (07:50)
[2020-02-24] MEDS: Multivitamin Tab PO SCH (07:50)
[2020-02-24] MEDS: Zinc Sulfate 220 MG Cap PO SCH (07:50)
[2020-02-24] MEDS: Acetaminophen 500 MG Tab PO SCH ×3 (07:50→20:02)
[2020-02-24] MEDS: Enoxaparin 40 MG/0.4 ML Syringe SUBCUT SCH ×2 (07:51→20:01)
[2020-02-24] MEDS: Polyethylene Glycol 3350 Powder 17 GM Packet PO SCH (07:52)
[2020-02-24 08:00] LABS: CHLORIDE,CL 105 mEq/L (98-106); SODIUM,NA 139 mEq/L (136-145)
[2020-02-24] MEDS ORDERED: Non-Formulary Medication 1 Each (Ezetimibe [Zetia] 10 MG) PO SCH (08:00)
[2020-02-24] MEDS ORDERED: Aspirin 325 MG Tab PO SCH (08:00)
[2020-02-24] MEDS ORDERED: Enoxaparin 40 MG/0.4 ML Syringe SUBCUT SCH (08:45)
[2020-02-24] MEDS: Dexamethasone 4 MG/ML SDV IVPUSH SCH (15:28)
[2020-02-24] MEDS ORDERED: REMDESIVIR 100 MG in Sodium Chloride 0.9% 100 ML IV SCH (16:00)
[2020-02-24] MEDS: Pantoprazole 40 MG Vial IVPUSH SCH (20:02)
[2020-02-24] MEDS: atorvaSTATin 20 MG Tab PO SCH (20:02)
--- NOTE | 2020-02-24 22:00 | PCM.PN ---
- General Info Date of Service: 02/24/20 Admission Dx/Problem (Free Text): COVID 19 Hypoxemia Functional Status: Reports: Pain Controlled. Denies: Tolerating Diet, Ambulating - Review of Systems General: Reports: Weakness, Fatigue, Malaise. Denies: Fever HEENT: Denies: Sinus Congestion, Sore Throat, Rhinitis Pulmonary: Reports: Shortness of Breath, Cough Cardiovascular: Denies: Chest Pain Gastrointestinal: Denies: Abdominal Pain, Nausea, Vomiting Genitourinary: Reports: No Symptoms Skin: Reports: Pallor - Patient Data Vitals - Most Recent: Last Vital Signs Temp 98.6 F 02/24/20 16:00 Pulse 91 02/24/20 16:00 Resp 28 H 02/24/20 16:00 BP 153/81 H 02/24/20 16:00 Pulse Ox 90 L 02/24/20 16:00 Weight - Most Recent: 181 lb 4.8 oz Lab Results Last 24 Hours: Laboratory Results - last 24 hr 02/24/20 02/24/20 02/24/20 Range/Units 07:00 07:30 07:30 WBC 10.1 H (5.0-10.0) 10^3/uL RBC 3.97 L (4.00-5.50) 10^6/uL Hgb 12.2 (12.0-16.0) g/dL Hct 37.7 (37.0-47.0) % MCV 95.0 H (82.0-94.0) fL MCH 30.7 (27.0-32.0) pg MCHC 32.4 L (33.0-38.0) g/dL RDW Coeff of Patricia 14.1 (11.0-15.0) % Plt Count 295 (150-400) 10^3/uL Add Manual Diff Yes Neutrophils % (Manual) 85 (35-85) % Band Neutrophils % 6 H (0-5) % Lymphocytes % (Manual) 6 L (21-55) % Monocytes % (Manual) 3 (2-12) % Absolute Neutrophils 9.19 H (1.80-7.00) 10^3/uL Lymphocytes # (Manual) 0.61 L (1.00-4.80) 10^3/uL Monocytes # (Manual) 0.30 (0.00-0.80) 10^3/uL PT 10.8 (9.7-12.3) SEC INR 1.07 (0.92-1.18) APTT 23.0 L (23.2-32.3) SEC Sodium 139 (136-145) mEq/L Potassium 4.6 (3.5-5.0) mEq/L Chloride 105 (98-106) mEq/L Carbon Dioxide 26 (21-32) mmol/L BUN 34 H (7-18) mg/dL Creatinine 0.7 (0.6-1.0) mg/dL Est Cr Clr Drug Dosing 64.01 mL/min Estimated GFR (MDRD) > 60 (>=60) mL/min Glucose 120 H (75-99) mg/dL Calcium 8.4 (8.4-10.1) mg/dL Total Bilirubin 0.5 (0.0-1.0) mg/dL AST 37 (15-37) U/L ALT 23 (12-78) U/L Alkaline Phosphatase 63 (46-116) U/L C-Reactive Protein 20.4 H (0.2-0.8) mg/dL Total Protein 7.8 (6.4-8.2) g/dL Albumin 2.4 L (3.4-5.0) g/dL Med Orders - Current: Current Medications Acetaminophen (Tylenol) 650 mg PO Q4H PRN PRN Reason: Pain (Mild 1-3)/fever Acetaminophen (Tylenol Extra Strength) 500 mg PO TID [facility] Last Admin: 02/24/20 20:02 Dose: 500 mg Documented by: Ascorbic Acid (Vitamin C) 1,000 mg PO DAILY [facility] Last Admin: 02/24/20 07:50 Dose: 1,000 mg Documented by: Atorvastatin Calcium (Lipitor) 40 mg PO BEDTIME [facility] Last Admin: 02/24/20 20:02 Dose: 40 mg Documented by: Cholecalciferol (Vitamin D3) 50 mcg PO DAILY [facility] Last Admin: 02/24/20 07:50 Dose: 50 mcg Documented by: Dexamethasone (Decadron) 6 mg IVPUSH DAILY@1600 [facility] Stop: 03/03/20 16:01 Last Admin: 02/24/20 15:28 Dose: 6 mg Documented by: Docusate Sodium (Colace) 100 mg PO BID [facility] Last Admin: 11/18/20 20:02 Dose: 100 mg Documented by: Enoxaparin Sodium (Lovenox) 40 mg SUBCUT DAILY@0800,1999 [facility] Last Admin: 02/24/20 20:01 Dose: 40 mg Documented by: Remdesivir 100 mg/ Sodium (Chloride) 100 mls @ 100 mls/hr IV DAILY@1600 [facility] Stop: 02/27/20 16:59 Last Admin: 02/24/20 15:28 Dose: 100 mls/hr Documented by: Ibuprofen (Motrin) 400 mg PO Q6H PRN PRN Reason: Pain (mild 1-3) Magnesium Oxide (Magnesium Oxide) 250 mg PO DAILY [facility] Last Admin: 02/24/20 07:50 Dose: 250 mg Documented by: Multivitamins/Minerals/Vitamin C (Tab-A-Jonatan) 1 tab PO DAILY [facility] Last Admin: 02/24/20 07:50 Dose: 1 tab Documented by: Nystatin (Nystop) 0 gm TOP BID PRN PRN Reason: Rash Ondansetron HCl (Zofran) 4 mg IV Q6H PRN PRN Reason: Nausea/Vomiting Pantoprazole Sodium (Protonix Iv) 40 mg IVPUSH DAILY@1999 [facility] Last Admin: 02/24/20 20:02 Dose: 40 mg Documented by: Polyethylene Glycol (Miralax) 17 gm PO DAILY [facility] Last Admin: 02/24/20 07:52 Dose: 17 gm Documented by: Trospium (Sanctura) 20 mg PO BID [facility] Last Admin: 02/24/20 20:02 Dose: 20 mg Documented by: Zinc Sulfate (Zincate) 220 mg PO DAILY [facility] Last Admin: 02/24/20 07:50 Dose: 220 mg Documented by: Discontinued Medications Acetaminophen (Tylenol) 500 mg PO TID [facility] Last Admin: 02/23/20 20:28 Dose: Not Given Documented by: Acetaminophen (Tylenol Extra Strength) Confirm Administered Dose 500 mg .ROUTE .STK-MED ONE Stop: 02/23/20 20:17 Last Admin: 02/23/20 20:27 Dose: Not Given Documented by: Aspirin (Aspirin) 325 mg PO DAILY [facility] Docusate Sodium (Colace) 100 mg PO BID PRN PRN Reason: Constipation Enoxaparin Sodium (Lovenox) 40 mg SUBCUT BID [facility] Last Admin: 02/24/20 07:51 Dose: 40 mg Documented by: Enoxaparin Sodium (Lovenox) 40 mg SUBCUT Q12H [facility] Sodium Chloride (Normal Saline) 1,000 mls @ 75 mls/hr IV ASDIRECTED [facility] Stop: 02/24/20 05:19 Last Admin: 02/23/20 15:58 Dose: 75 mls/hr Documented by: Remdesivir 200 mg/ Sodium (Chloride) 250 mls @ 250 mls/hr IV ONETIME ONE Stop: 02/23/20 16:59 Last Admin: 02/23/20 15:58 Dose: 250 mls/hr Documented by: Non-Formulary Medication (Ezetimibe [Zetia]) 10 mg PO DAILY [facility] Non-Formulary Medication (Ferrous Sulfate [Ferrous Sulfate]) 325 mg PO BID [facility] - Exam Quality Assessment: Supplemental Oxygen General: Alert, Cooperative Neck: Supple Lungs: Crackles (bases) Cardiovascular: Regular Rate, Regular Rhythm GI/Abdominal Exam: Normal Bowel Sounds, Soft, Non-Tender Extremities: Normal Inspection, No Pedal Edema Skin: Warm, Dry Neurological: No New Focal Deficit Sepsis Event Note - Evaluation Sepsis Screening Result: Sepsis Risk - Focused Exam Vital Signs: Vital Signs Temp Pulse Resp BP Pulse Ox 02/24/20 16:00 98.6 F 91 28 H 153/81 H 90 L 02/24/20 12:00 98.7 F 100 32 H 159/82 H 84 L - Problem List & Annotations (1) COVID-19 SNOMED Code(s): 446648846 Code(s): U07.1 - COVID-19 Status: Acute Priority: High Current Visit: Yes (2) Hypoxia SNOMED Code(s): 017232165 Code(s): R09.02 - HYPOXEMIA Status: Acute Priority: High Current Visit: Yes (3) Pneumonia due to severe acute respiratory syndrome coronavirus 2 (SARS-CoV-2) SNOMED Code(s): 012586717125493878 Code(s): U07.1 - COVID-19; J12.89 - OTHER VIRAL PNEUMONIA Status: Acute Priority: High Current Visit: Yes (4) Renal insufficiency SNOMED Code(s): 780730426, 843915607 Code(s): N28.9 - DISORDER OF KIDNEY AND URETER, UNSPECIFIED Status: Acute Priority: High Current Visit: Yes - Problem List Review Problem List Initiated/Reviewed/Updated: Yes - My Orders Last 24 Hours: My Active Orders 02/24/20 20:00 Enoxaparin [Lovenox] 40 mg SUBCUT DAILY@0800,1999 - Assessment Assessment:: COVID 19 Hypoxemia Respiratory Distress - Plan Plan:: Patient sitting upright and resting, minimal conversation this am. Does get dyspneic with conversation. Afebrile. Oxygen sats 85-90% on 15 liters by NRB mask. Labs note CRP high at 20.5. Electrolytes stable. Lung sounds note crackles in the bases. Decreased oral intake. Will continue with oxygen to keep sats greater than 90% if possible. Continue Remdesivir and Dexamethasone. Repeat labs in am.
[2020-02-25] MEDS ORDERED: LORazepam 2 MG/ML Syringe IVPUSH PRN ×2 (06:42→10:13)
[2020-02-25] MEDS ORDERED: Morphine 2 MG/ML SYRINGE IVPUSH SCH (06:45)
[2020-02-25] MEDS: Morphine 2 MG/ML SYRINGE IVPUSH PRN ×6 (09:45→22:05)
[2020-02-25] MEDS: Polyethylene Glycol 3350 Powder 17 GM Packet PO SCH (09:58)
[2020-02-25] MEDS: Docusate Sodium 100 MG Cap PO SCH (09:58)
[2020-02-25] MEDS: Enoxaparin 40 MG/0.4 ML Syringe SUBCUT SCH (09:58)
[2020-02-25] MEDS: Multivitamin Tab PO SCH (09:59)
[2020-02-25] MEDS: Trospium 20 MG Tab PO SCH (09:59)
[2020-02-25] MEDS: Acetaminophen 500 MG Tab PO SCH ×3 (09:59→20:03)
[2020-02-25] MEDS: Ascorbic Acid 500 MG Tab PO SCH (09:59)
[2020-02-25] MEDS: Cholecalciferol (Vitamin D3) 25 MCG Tab PO SCH (09:59)
[2020-02-25] MEDS: Zinc Sulfate 220 MG Cap PO SCH (10:00)
--- NOTE | 2020-02-25 10:21 | PCM.PN ---
- General Info Date of Service: 02/25/20 Admission Dx/Problem (Free Text): COVID 19 Hypoxemia Subjective Update: Joselin is a 74 yo female who was admitted to the hospital with ARDS, hypoxemia, and bilateral covid 19 pneumonitis. She has continued to decline since admission. Is now only having O2 sats in low 80s on 15 L NRB. Yesterday her code status was switched to DNR/DNI. It was discussed that she would need transfer to higher level of care if she wishes for further treatment and family and patient made decision to switch code status. Throughout the night her oxygen needs have increased despite continued remdesevir and dexamethasone. She has worsened respiratory distress. Family was called in this morning at 5 am and have been at her bedside since. I discussed condition with patient and family. Patient is now unable to talk as she is struggling greatly to breathe. They made decision to keep Joselin comfortable. They wish to stop treatment and switch to comfort cares. Patient does point to chest when asked if she has any pain. Again, she is unable to verbalized as she is in respiratory distress. Her wishes are for chocolate ice cream at this moment. She denies other concerns. Functional Status: Reports: Tolerating Diet, Urinating, New Symptoms (worsening respiratory distress). Denies: Ambulating - Review of Systems General: Reports: Fever, Weakness, Fatigue, Malaise Pulmonary: Reports: Shortness of Breath, Cough Gastrointestinal: Denies: Diarrhea, Vomiting Neurological: Reports: Weakness - Patient Data Vitals - Most Recent: Last Vital Signs Temp 97.1 F 02/25/20 04:00 Pulse 106 H 02/25/20 04:00 Resp 28 H 02/25/20 04:00 BP 152/78 H 02/25/20 04:00 Pulse Ox 82 L 02/25/20 04:31 Weight - Most Recent: 181 lb 4.8 oz Med Orders - Current: Current Medications Acetaminophen (Tylenol) 650 mg PO Q4H PRN PRN Reason: Pain (Mild 1-3)/fever Acetaminophen (Tylenol Extra Strength) 500 mg PO TID [facility] Last Admin: 02/25/20 09:59 Dose: Not Given Documented by: Ibuprofen (Motrin) 400 mg PO Q6H PRN PRN Reason: Pain (mild 1-3) Lorazepam (Ativan) 0.5 - 1 mg IVPUSH Q1H PRN PRN Reason: Anxiety Morphine Sulfate (Morphine) 1 - 2 mg IVPUSH Q2H PRN PRN Reason: Pain Last Admin: 02/25/20 09:45 Dose: 2 mg Documented by: Ondansetron HCl (Zofran) 4 mg IV Q6H PRN PRN Reason: Nausea/Vomiting Discontinued Medications Acetaminophen (Tylenol) 500 mg PO TID [facility] Last Admin: 02/23/20 20:28 Dose: Not Given Documented by: Acetaminophen (Tylenol Extra Strength) Confirm Administered Dose 500 mg .ROUTE .STK-MED ONE Stop: 02/23/20 20:17 Last Admin: 02/23/20 20:27 Dose: Not Given Documented by: Ascorbic Acid (Vitamin C) 1,000 mg PO DAILY [facility] Last Admin: 02/25/20 09:59 Dose: Not Given Documented by: Aspirin (Aspirin) 325 mg PO DAILY [facility] Atorvastatin Calcium (Lipitor) 40 mg PO BEDTIME [facility] Last Admin: 02/24/20 20:02 Dose: 40 mg Documented by: Cholecalciferol (Vitamin D3) 50 mcg PO DAILY [facility] Last Admin: 02/25/20 09:59 Dose: Not Given Documented by: Dexamethasone (Decadron) 6 mg IVPUSH DAILY@1600 [facility] Stop: 03/03/20 16:01 Last Admin: 02/24/20 15:28 Dose: 6 mg Documented by: Docusate Sodium (Colace) 100 mg PO BID PRN PRN Reason: Constipation Docusate Sodium (Colace) 100 mg PO BID [facility] Last Admin: 02/25/20 09:58 Dose: Not Given Documented by: Enoxaparin Sodium (Lovenox) 40 mg SUBCUT BID [facility] Last Admin: 02/24/20 07:51 Dose: 40 mg Documented by: Enoxaparin Sodium (Lovenox) 40 mg SUBCUT Q12H [facility] Enoxaparin Sodium (Lovenox) 40 mg SUBCUT DAILY@0800,2000 [facility] Last Admin: 02/25/20 09:58 Dose: Not Given Documented by: Sodium Chloride (Normal Saline) 1,000 mls @ 75 mls/hr IV ASDIRECTED [facility] Stop: 02/24/20 05:19 Last Admin: 02/23/20 15:58 Dose: 75 mls/hr Documented by: Remdesivir 200 mg/ Sodium (Chloride) 250 mls @ 250 mls/hr IV ONETIME ONE Stop: 02/23/20 16:59 Last Admin: 02/23/20 15:58 Dose: 250 mls/hr Documented by: Remdesivir 100 mg/ Sodium (Chloride) 100 mls @ 100 mls/hr IV DAILY@1600 [facility] Stop: 02/27/20 16:59 Last Admin: 02/24/20 15:28 Dose: 100 mls/hr Documented by: Lorazepam (Ativan) 0.5 - 1 mg IVPUSH Q6H PRN PRN Reason: Anxiety Magnesium Oxide (Magnesium Oxide) 250 mg PO DAILY [facility] Last Admin: 02/25/20 09:58 Dose: Not Given Documented by: Morphine Sulfate (Morphine) 1 - 2 mg IVPUSH Q2H [facility] Multivitamins/Minerals/Vitamin C (Tab-A-Jonatan) 1 tab PO DAILY [facility] Last Admin: 02/25/20 09:59 Dose: Not Given Documented by: Non-Formulary Medication (Ezetimibe [Zetia]) 10 mg PO DAILY [facility] Non-Formulary Medication (Ferrous Sulfate [Ferrous Sulfate]) 325 mg PO BID [facility] Nystatin (Nystop) 0 gm TOP BID PRN PRN Reason: Rash Pantoprazole Sodium (Protonix Iv) 40 mg IVPUSH DAILY@2000 [facility] Last Admin: 02/24/20 20:02 Dose: 40 mg Documented by: Polyethylene Glycol (Miralax) 17 gm PO DAILY [facility] Last Admin: 02/25/20 09:58 Dose: Not Given Documented by: Trospium (Sanctura) 20 mg PO BID [facility] Last Admin: 02/25/20 09:59 Dose: Not Given Documented by: Zinc Sulfate (Zincate) 220 mg PO DAILY [facility] Last Admin: 02/25/20 10:00 Dose: Not Given Documented by: - Exam Quality Assessment: Supplemental Oxygen (15 L NRB), DVT Prophylaxis General: Alert, Severe Distress Neck: Supple, Trachea Midline Lungs: Decreased Breath Sounds, Rhonchi, Wheezing Cardiovascular: Regular Rate, Regular Rhythm GI/Abdominal Exam: Normal Bowel Sounds, Soft, Non-Tender, No Organomegaly, No Distention, No Abnormal Bruit, No Mass, Pelvis Stable Extremities: Normal Inspection, Normal Range of Motion, Non-Tender, No Pedal Edema, Normal Capillary Refill Neurological: No New Focal Deficit Psy/Mental Status: Alert, Normal Affect, Normal Mood Sepsis Event Note - Evaluation Sepsis Screening Result: Sepsis Risk - Focused Exam Vital Signs: Vital Signs Temp Pulse Resp BP Pulse Ox 02/25/20 04:31 82 L 02/25/20 04:00 97.1 F 106 H 28 H 152/78 H 85 L 02/25/20 00:00 97.3 F 88 18 155/85 H 90 L - Problem List & Annotations (1) Pneumonia due to severe acute respiratory syndrome coronavirus 2 (SARS-CoV-2) SNOMED Code(s): 403410676083642458 Code(s): U07.1 - COVID-19; J12.89 - OTHER VIRAL PNEUMONIA Status: Acute Priority: High Current Visit: Yes (2) COVID-19 SNOMED Code(s): 375462645 Code(s): U07.1 - COVID-19 Status: Acute Priority: High Current Visit: Yes (3) Renal insufficiency SNOMED Code(s): 579341941, 622257439 Code(s): N28.9 - DISORDER OF KIDNEY AND URETER, UNSPECIFIED Status: Acute Priority: High Current Visit: Yes (4) Hypoxia SNOMED Code(s): 040641423 Code(s): R09.02 - HYPOXEMIA Status: Acute Priority: High Current Visit: Yes (5) Palliative care status SNOMED Code(s): 697144061 Code(s): Z51.5 - ENCOUNTER FOR PALLIATIVE CARE Status: Acute Current Visit: Yes - Problem List Review Problem List Initiated/Reviewed/Updated: Yes - My Orders Last 24 Hours: My Active Orders 02/25/20 10:13 LORazepam [Ativan] 0.5 - 1 mg IVPUSH Q1H PRN Comfort Measures [OM.PC] Routine 02/25/20 10:13 Code Status [Resuscitation Status] Routine - Assessment Assessment:: Bilateral Pneumonia due to COVID 19 Hypoxemia Respiratory Distress Palliative Care - Plan Plan:: Respiratory distress has worsened overnight. Long discussion have with family and patient at bedside this morning. Oxygen needs have been increasing and we are unable to get O2 sats > 90% with current oxygen ability in this facility. Currently has O2 sats low 80s on 15 L NRB. Temp up to 100 deg F this morning. Labs noted from yesterday include CRP 20.5, otherwise relatively stable. Decision was not to transfer out yesterday and switch code status to DNR. This morning family would like to switch patient to DNR/DNI/Comfort Cares. She is c/o chest pain. Discussed with family that we would stop all medications/labs/etc and just give her medications to keep her comfortable. They are agreeable with this and wish to proceed. Patient present during conversation and shakes head yes, but she is unable to converse as she is in respiratory distress. Her only request at this time is chocolate icecream. She does have significant increased work of breathing. Discussed risk of aspiration etc. Family agreeable to let her eat for comfort and they will continue to try and keep O2 on as able. Patient will be switched to palliative/comfort cares only.
[2020-02-25 10:34] VITALS: BP 164/87; PULSE 121
[2020-02-26] MEDS: Morphine 2 MG/ML SYRINGE IVPUSH PRN (00:05)
--- NOTE | 2020-03-01 21:31 | PCM.DCSUM1 ---
Discharge Summary - Hospital Course Free Text/Narrative:: Joselin is a 74 year old female who [facility]. Was diagnosed with COVID on 02-11-2020 and has had increasing issues with hypoxia since that time. Was [facility] a [facility] and was able to keep sats greater than 90%. Had worsening issues with this and was sent to the ER as sats were in the 70s. Has had a cough. Was seen by Titi Zamarripa and oxygen was increased but returned back again on Saturday and admitted for further treatment. Started on Remdesivir and dexamethasone. Char had consulted with [facility] and felt that at her age and oxygen requirements, may have concern for progression of disease. Diagnosis: Stroke: No Modified Agenda Scale: No Symptoms at All Modified Agenda Scale Score: 0 - Discharge Data Discharge Date: 02/26/20 Discharge Disposition: Condition: - Referral to Home Health Primary Care Physician: Nanci Dailey PA-C - Discharge Diagnosis/Problem(s) (1) COVID-19 SNOMED Code(s): 708959609 ICD Code: U07.1 - COVID-19 Status: Acute Priority: High (2) Hypoxia SNOMED Code(s): 236256295 ICD Code: R09.02 - HYPOXEMIA Status: Acute Priority: High (3) Pneumonia due to severe acute respiratory syndrome coronavirus 2 (SARS-CoV-2) SNOMED Code(s): 026467984319396734 ICD Code: U07.1 - COVID-19; J12.89 - OTHER VIRAL PNEUMONIA Status: Acute Priority: High (4) Renal insufficiency SNOMED Code(s): 630293925, 055181996 ICD Code: N28.9 - DISORDER OF KIDNEY AND URETER, UNSPECIFIED Status: Acute Priority: High - Patient Summary/Data Hospital Course: Patient was admitted for hypoxia, respiratory distress as a result of COVID. Initially able to maintain sats at 89-90% on 15 liters. Was given IV dexamethasone and Remdesivir. Family and patient advised of oxygen needs and status and changed to DNR/DNI. Patient status continued to decline, noted increased work of breathing and sats continued to drop to the 70s. Unable to vocalize due to shortness of breath. She continued to fight the mask. Family contacted and at bedside. Was changed to a nasal cannula and all meds stopped and switched to comfort cares. Ultimately patient continued to have respiratory distress and with family at bedside. - Discharge Plan *PRESCRIPTION DRUG MONITORING PROGRAM REVIEWED*: Not Applicable *COPY OF PRESCRIPTION DRUG MONITORING REPORT IN PATIENT ELOY: Not Applicable Home Medications: Home Meds Acetaminophen [Tylenol] 500 mg PO TID 05/31/16 [History] Ascorbic Acid [Vitamin C] 1,000 mg PO DAILY 05/31/16 [History] Cholecalciferol (Vitamin D3) [Vitamin D] 2,000 units PO DAILY 05/31/16 [History] Docusate Sodium [Colace] 100 mg PO BID 05/31/16 [History] Ezetimibe [Zetia] 10 mg PO DAILY 05/31/16 [History] Magnesium 250 mg PO DAILY 05/31/16 [History] Multivitamin [Multivitamins] 1 ea PO DAILY 05/31/16 [History] Polyethylene Glycol 3350 [MiraLAX] 17 gm PO DAILY 05/31/16 [History] Solifenacin Succinate [Vesicare] 10 mg PO DAILY 05/31/16 [History] Dicyclomine [Bentyl] 20 mg PO QID PRN 06/02/17 [History] Nystatin [Nyamyc] 1 applic TOP BID PRN 06/02/17 [History] Carbamide Peroxide [Ear Wax Removal] 2 drop EARBOTH TU 11/13/18 [History] Clindamycin HCl 600 mg PO ASDIRECTED 11/13/18 [History] Lanolin/Min Oil/NaCl/Pet,Wh [Lubriderm Daily Moisture Lotion] 1 applic TOP BID 11/14/18 [History] Magnesium Citrate [Citrate of Magnesia] 300 ml PO ASDIRECTED PRN 02/23/20 [ History] Omeprazole 20 mg PO DAILY 02/23/20 [History] nitrofurantoin macrocrystaL [Macrodantin] 50 mg PO DAILY 02/23/20 [History] Forms: ED Department Discharge Referrals: Nanci Dailey PA-C [Primary Care Provider] - - Discharge Summary/Plan Comment DC Time >30 min.: No - General Info Date of Service: 02/26/20 Admission Dx/Problem (Free Text: COVID 19 Hypoxemia Subjective Update: - Patient Data Vitals - Most Recent: Last Vital Signs Temp 97.8 F 02/26/20 00:00 Pulse 121 H 02/25/20 10:33 Resp 32 H 02/25/20 20:00 BP 164/87 H 02/25/20 10:33 Pulse Ox 79 L 02/25/20 20:00 Weight - Most Recent: 181 lb 4.8 oz Med Orders - Current: Current Medications Discontinued Medications Acetaminophen (Tylenol) 650 mg PO Q4H PRN PRN Reason: Pain (Mild 1-3)/fever Acetaminophen (Tylenol) 500 mg PO TID [facility] Last Admin: 02/23/20 20:28 Dose: Not Given Documented by: Acetaminophen (Tylenol Extra Strength) Confirm Administered Dose 500 mg .ROUTE .STK-MED ONE Stop: 02/23/20 20:17 Last Admin: 02/23/20 20:27 Dose: Not Given Documented by: Acetaminophen (Tylenol Extra Strength) 500 mg PO TID [facility] Last Admin: 02/25/20 20:03 Dose: 500 mg Documented by: Ascorbic Acid (Vitamin C) 1,000 mg PO DAILY [facility] Last Admin: 02/25/20 09:59 Dose: Not Given Documented by: Aspirin (Aspirin) 325 mg PO DAILY [facility] Atorvastatin Calcium (Lipitor) 40 mg PO BEDTIME [facility] Last Admin: 02/24/20 20:02 Dose: 40 mg Documented by: Cholecalciferol (Vitamin D3) 50 mcg PO DAILY [facility] Last Admin: 02/25/20 09:59 Dose: Not Given Documented by: Dexamethasone (Decadron) 6 mg IVPUSH DAILY@1600 [facility] Stop: 03/03/20 16:01 Last Admin: 02/24/20 15:28 Dose: 6 mg Documented by: Docusate Sodium (Colace) 100 mg PO BID PRN PRN Reason: Constipation Docusate Sodium (Colace) 100 mg PO BID [facility] Last Admin: 02/25/20 09:58 Dose: Not Given Documented by: Enoxaparin Sodium (Lovenox) 40 mg SUBCUT BID [facility] Last Admin: 02/24/20 07:51 Dose: 40 mg Documented by: Enoxaparin Sodium (Lovenox) 40 mg SUBCUT Q12H [facility] Enoxaparin Sodium (Lovenox) 40 mg SUBCUT DAILY@0800,2000 [facility] Last Admin: 02/25/20 09:58 Dose: Not Given Documented by: Sodium Chloride (Normal Saline) 1,000 mls @ 75 mls/hr IV ASDIRECTED [facility] Stop: 02/24/20 05:19 Last Admin: 02/23/20 15:58 Dose: 75 mls/hr Documented by: Remdesivir 200 mg/ Sodium (Chloride) 250 mls @ 250 mls/hr IV ONETIME ONE Stop: 02/23/20 16:59 Last Admin: 02/23/20 15:58 Dose: 250 mls/hr Documented by: Remdesivir 100 mg/ Sodium (Chloride) 100 mls @ 100 mls/hr IV DAILY@1600 [facility] Stop: 02/27/20 16:59 Last Admin: 02/24/20 15:28 Dose: 100 mls/hr Documented by: Ibuprofen (Motrin) 400 mg PO Q6H PRN PRN Reason: Pain (mild 1-3) Last Admin: 02/25/20 15:41 Dose: 400 mg Documented by: Lorazepam (Ativan) 0.5 - 1 mg IVPUSH Q6H PRN PRN Reason: Anxiety Lorazepam (Ativan) 0.5 - 1 mg IVPUSH Q1H PRN PRN Reason: Anxiety Magnesium Oxide (Magnesium Oxide) 250 mg PO DAILY [facility] Last Admin: 02/25/20 09:58 Dose: Not Given Documented by: Morphine Sulfate (Morphine) 1 - 2 mg IVPUSH Q2H [facility] Last Admin: 02/25/20 14:30 Dose: Not Given Documented by: Morphine Sulfate (Morphine) 1 - 2 mg IVPUSH Q2H PRN PRN Reason: Pain Last Admin: 02/26/20 00:05 Dose: 2 mg Documented by: Multivitamins/Minerals/Vitamin C (Tab-A-Jonatan) 1 tab PO DAILY [facility] Last Admin: 02/25/20 09:59 Dose: Not Given Documented by: Non-Formulary Medication (Ezetimibe [Zetia]) 10 mg PO DAILY [facility] Non-Formulary Medication (Ferrous Sulfate [Ferrous Sulfate]) 325 mg PO BID [facility] Nystatin (Nystop) 0 gm TOP BID PRN PRN Reason: Rash Ondansetron HCl (Zofran) 4 mg IV Q6H PRN PRN Reason: Nausea/Vomiting Pantoprazole Sodium (Protonix Iv) 40 mg IVPUSH DAILY@1999 [facility] Last Admin: 02/24/20 20:02 Dose: 40 mg Documented by: Polyethylene Glycol (Miralax) 17 gm PO DAILY [facility] Last Admin: 02/25/20 09:58 Dose: Not Given Documented by: Trospium (Sanctura) 20 mg PO BID [facility] Last Admin: 02/25/20 09:59 Dose: Not Given Documented by: Zinc Sulfate (Zincate) 220 mg PO DAILY [facility] Last Admin: 02/25/20 10:00 Dose: Not Given Documented by: - Exam Physical Findings Comments:: patient as a result of respiratory distress related to COVID 19
== END 2020-02-26 03:00 | disposition expired | DRG 177 ==
LOC: CC.ED 11:21 → CC.MS 13:27 → UNDOADMIN 13:27 → CC.MS 13:31
PROVIDERS: ADMIT Nurse Practitioner Family; ATTEND Family Medicine
PROC: XW033E5 Introduction of Remdesivir Anti-infective into Peripheral Vein, Percutaneous Approach, New Technology Group 5 (ICD-10-PCS; principal; 2020-02-23)
DX: U07.1 COVID-19 (principal); J12.81 Pneumonia due to SARS-associated coronavirus; J12.89 Other viral pneumonia; J80 Acute respiratory distress syndrome; Z66 Do not resuscitate; Z51.5 Encounter for palliative care; N28.9 Disorder of kidney and ureter, unspecified; R01.1 Cardiac murmur, unspecified; E78.00 Pure hypercholesterolemia, unspecified; J43.9 Emphysema, unspecified; K29.70 Gastritis, unspecified, without bleeding; K59.09 Other constipation; R32 Unspecified urinary incontinence; M19.90 Unspecified osteoarthritis, unspecified site; F32.9 Major depressive disorder, single episode, unspecified; F41.9 Anxiety disorder, unspecified; Z96.649 Presence of unspecified artificial hip joint; Z90.49 Acquired absence of other specified parts of digestive tract; Z88.0 Allergy status to penicillin; F70 Mild intellectual disabilities; Z88.1 Allergy status to other antibiotic agents; Z88.2 Allergy status to sulfonamides; Z88.5 Allergy status to narcotic agent; Z79.899 Other long term (current) drug therapy; Z99.81 Dependence on supplemental oxygen
CPT/HCPCS: 36415; 36600; 51702; 71045; 80053; 82550; 82803; 83605; 83880; 84484; 85025; 85379; 85610; 85730; 86140; 93005; 93010; 99285-25; A9270-GY; C9113; J1100; J1650; J2270; J7030; J7050